=== PATIENT | female | born 1995 | race Caucasian/White ===

== ENCOUNTER 2019-12-17 13:06 | Emergency (ER) | payer BC, SELFPAY ==
--- NOTE | 2019-12-17 14:17 | ER ---
Nurse's Notes [facility] Name: Angelina Woodard Age: 24 yrs Sex: Female : 1995 Arrival Date: 12/17/2019 Time: 13:11 Bed 4 Private MD: Diagnosis: Pain in right knee Presentation: 12/16 13:23 Chief complaint: Patient states: right knee injury last night after twisting it. sv Coronavirus screen: Client denies travel out of the [place] in the last 14 days. At this time, the client does not indicate any symptoms associated with coronavirus-19. Ebola Screen: No symptoms or risks identified at this time. Risk Assessment: Do you want to hurt yourself or someone else? Patient reports no desire to harm self or others. Onset of symptoms was December 16, 2019. 13:23 Method Of Arrival: Ambulatory sv 13:23 Acuity: EDIN 4 sv 13:23 Initial Sepsis Screen: Does the patient meet any 2 criteria? No. Patient's initial sv sepsis screen is negative. Does the patient have a suspected source of infection? No. Patient's initial sepsis screen is negative. Triage Assessment: 13:25 General: Appears in no apparent distress. uncomfortable, Behavior is calm, cooperative, sv appropriate for age. Pain: Complains of pain in right knee. Neuro: Level of Consciousness is awake, alert, obeys commands, Oriented to person, place, time, situation, Gait is steady. Respiratory: Respiratory effort is even, unlabored. 14:09 General: Appears in no apparent distress. uncomfortable, Behavior is calm, cooperative, ph appropriate for age, Reports Denies fever, fatigue, chills. Pain: Complains of pain in right knee Pain does not radiate. Pain Quality of pain is described as Pain began 1 day ago. Aggravated by weight bearing. Neuro: No deficits noted. Level of Consciousness is awake, alert, obeys commands, Oriented to person, place, time, situation, Appropriate for age. Cardiovascular: No deficits noted. Respiratory: No deficits noted. Musculoskeletal: Reports pain in right knee. Historical: - Allergies: 13:23 No Known Allergies; sv - Immunization history:: Adult Immunizations up to date. - Social history:: Smoking status: . Screenin:43 Abuse screen: Denies threats or abuse. Denies injuries from another. Nutritional ph screening: No deficits noted. Tuberculosis screening: No symptoms or risk factors identified. Fall Risk None identified. Assessment: 14:43 Reassessment: Patient appears in no apparent distress at this time. Patient and/or ph family updated on plan of care and expected duration. Pain level reassessed. Patient is alert, oriented x 3, equal unlabored respirations, skin warm/dry/pink. Vital Signs: 13:23 BP 107 / 88; Pulse 88; Resp 16; Temp 97; Pulse Ox 99% ; Weight 108.86 kg; Height 5 ft. sv 3 in. (160.02 cm); 14:13 BP 125 / 86; Pulse 94; Resp 19; Pulse Ox 100% ; ph 13:23 Body Mass Index 42.51 (108.86 kg, 160.02 cm) sv ED Course: 13:11 Patient arrived in ED. mr 13:23 Zeeshan Sexton PA is PHCP. cp 13:23 Eduard Jack MD is Attending Physician. cp 13:23 Triage completed. sv 13:23 Arm band placed on. sv 14:07 XRAY Knee RIGHT 3 view In Process Unspecified. EDMS 14:08 Ayla Hodgson RN is Primary Nurse. ph 14:16 Jim Navarro MD is Referral Physician. cp 14:43 No provider procedures requiring assistance completed. Patient did not have IV access ph during this emergency room visit. 14:44 Patient has correct armband on for positive identification. ph 14:45 Donte wrap to right knee. ph Administered Medications: 14:12 Drug: Ibuprofen 800 mg Route: PO; ph 14:42 Follow up: Response: No adverse reaction ph Outcome: 14:17 Discharge ordered by MD. cp 14:43 Discharged to home ambulatory, with crutches. ph 14:43 Condition: good 14:43 Discharge instructions given to patient, Instructed on discharge instructions, follow up and referral plans. medication usage, Demonstrated understanding of instructions, follow-up care, medications. 14:45 Patient left the ED. ph Signatures: Dispatcher [employer] EDMS Sabrina Genao RN RN Libby Stewart mr Ayla Hodgson RN RN Zeeshan Sexton PA PA cp Corrections: (The following items were deleted from the chart) 13:25 13:23 Resp 16bpm; Pulse Ox 99%; Temp 97F; 108.86 kg; Height 5 ft. 3 in.; BMI: 42.5; sv sv 13:26 13:23 Pulse 88bpm; Resp 16bpm; Pulse Ox 99%; Temp 97F; 108.86 kg; Height 5 ft. 3 in.; sv BMI: 42.5; sv
--- NOTE | 2019-12-17 14:17 | EDPHYS ---
Physician Documentation [facility] Name: Angelina Woodard Age: 24 yrs Sex: Female : 1995 Arrival Date: 12/17/2019 Time: 13:11 Bed 4 Private MD: ED Physician Eduard Jack HPI: 12/16 13:50 This 24 yrs old Female presents to ER via Ambulatory with complaints of Knee cp Pain. 13:50 The patient presents with pain, that is acute. The complaints affect the medial aspect cp of right knee and right knee. Context: resulted from twisting of the extremity, dancing yesterday evening, the patient can fully bear weight, the patient is able to ambulate, with mild difficulty, Problem is a result from a previous injury: Yes. patella dislocation?. Associated signs and symptoms: Pertinent negatives calf tenderness, numbness, tingling, warmth, weakness. 13:50 Treatment prior to arrival includes: no previous treatment. cp Historical: - Allergies: 13:23 No Known Allergies; sv - Immunization history:: Adult Immunizations up to date. - Social history:: Smoking status: . ROS: 13:55 MS/extremity: Positive for pain, tenderness, of the right knee, Negative for decreased cp range of motion, deformity, paresthesias. 13:55 Constitutional: Negative for body aches, chills, fever. cp 13:55 Back: Negative for pain at rest, pain with movement, radiated pain. 13:55 Skin: Negative for rash. 13:55 All other systems are negative. Exam: 14:00 Constitutional: The patient appears in no acute distress, alert, awake, well developed, cp well nourished, obese. 14:00 Head/Face: Normocephalic, atraumatic. cp 14:00 Chest/axilla: Inspection: normal. cp 14:00 Cardiovascular: Rate: normal. 14:00 Respiratory: the patient does not display signs of respiratory distress, Respirations: normal. 14:00 Musculoskeletal/extremity: Extremities: grossly normal except: noted in the anterior aspect and medial aspect right knee: pain, tenderness, ROM: limited passive range of motion due to pain, in the right knee, Perfusion: the extremity is normally perfused throughout, Sensation intact. 14:00 Skin: cellulitis, is not appreciated, no rash present. Vital Signs: 13:23 BP 107 / 88; Pulse 88; Resp 16; Temp 97; Pulse Ox 99% ; Weight 108.86 kg; Height 5 ft. sv 3 in. (160.02 cm); 14:13 BP 125 / 86; Pulse 94; Resp 19; Pulse Ox 100% ; ph 13:23 Body Mass Index 42.51 (108.86 kg, 160.02 cm) sv MDM: 13:59 Patient medically screened. cp 14:15 Differential diagnosis: dislocation, closed fracture, tendonitis. Data reviewed: vital cp signs, nurses notes, radiologic studies, plain films. Test interpretation: by ED physician or midlevel provider: xrays of right knee negative for fracture and/or dislocation. Counseling: I had a detailed discussion with the patient and/or guardian regarding: the historical points, exam findings, and any diagnostic results supporting the discharge/admit diagnosis, radiology results, to return to the emergency department if symptoms worsen or persist or if there are any questions or concerns that arise at home. Response to treatment: the patient's symptoms have mildly improved after treatment, and as a result, I will discharge patient. 12/16 13:47 Order name: XRAY Knee RIGHT 3 view cp 12/16 14:13 Order name: Donte wrap-joint; Complete Time: 14:42 cp 12/16 14:13 Order name: Crutches; Complete Time: 14:42 cp Administered Medications: 14:12 Drug: Ibuprofen 800 mg Route: PO; ph 14:42 Follow up: Response: No adverse reaction ph Disposition: 14:30 Chart complete. cp 17:30 Co-signature as Attending Physician, Eduard Jack MD. rn Disposition: 12/17/19 14:17 Discharged to Home. Impression: Pain in right knee. - Condition is Stable. - Discharge Instructions: How to Use a Knee Brace, Knee Pain. - Prescriptions for Naprosyn 500 mg Oral Tablet - take 1 tablet by ORAL route 2 times per day take with food; 20 tablet. - Medication Reconciliation Form, Thank You Letter, Antibiotic Education, Prescription Opioid Use form. - Follow up: Jim Navarro MD; When: 1 week; Reason: pain continues. - Problem is new. - Symptoms have improved. Signatures: Dispatcher [employer] EDSabrina Andre RN RN sv Nieto, Roman, MD MD rn Hall, Patricia, RN RN ph Carlie, Zeeshan, PA PA cp Corrections: (The following items were deleted from the chart) 14:45 14:17 12/17/2019 14:17 Discharged to Home. Impression: Pain in right knee. Condition is ph Stable. Forms are Medication Reconciliation Form, Thank You Letter, Antibiotic Education, Prescription Opioid Use. Follow up: Jim Navarro; When: 1 week; Reason: pain continues. Problem is new. Symptoms have improved. cp
[2019-12-17] MEDS ORDERED: IBUPROFEN 400 MG TAB ONE (14:18)
[2019-12-17] MEDS ORDERED: FENTANYL CITR 100 MCG/2 ML ONE (14:20)
[2019-12-17 15:10] VITALS: TEMP 97
[2019-12-17 15:11] VITALS: BP 125/86; O2SAT 100
--- NOTE | 2019-12-17 15:50 | RAD REPORT ---
EXAM DESCRIPTION: RAD - Knee Right 3 View - 12/17/2019 2:07 pm CLINICAL HISTORY: PAIN COMPARISON: No comparisons FINDINGS: No acute fracture or dislocation is seen. No significant joint fluid.
== END 2019-12-17 14:45 | disposition home or self-care (01) ==
LOC: ER 13:06
DX: M25.561 Pain in right knee (principal)
CPT/HCPCS: 99283; J3010

== ENCOUNTER 2022-08-17 11:32 | Emergency (ER) | payer BC ==
--- OUTSIDE RECORDS SUMMARY | 2022-08-17 11:36 | XMS REPORT | Continuity of Care Document ---
:1995 Author Organization [facility] t Address [address] [facility] [address] [place] [address] Care Team Providers Name Role Phone Ken Burger DO Attending Clinician MILLIE TAYLOR Attending Clinician Unavailable Millie Orellana Attending Clinician [phone] Doctor Unassigned, [place] Attending Clinician Unavailable RICHARD ERICKSON Attending Clinician Unavailable Payers Payer Name Policy Type Policy Number Effective Date Expiration Date [facility] [id number] 2015 PPO 00:00:00 Problems Condition Condition Condition Status Onset Resolution Last Treating Co mments Source Name Details Category Date Date Treatment Clinician Date IUD IUD Disease Active 2019-0 Univers (intrauter (intrauter 4-07 it y of ine ine 00:00: [place] device) in device) in [address] Branch Encounter Encounter Disease Active 2020-0 Uni vers for IUD for IUD 4-07 [place] Other Other Disease Active 2020-0 Univers general general 3-19 [place] of counseling [place] and advice and advice 00 Me dical for for Branch contracept contracept red red management management Obesity Obesity Disease Active 2020-0 Univers (BMI (BMI 3-19 ity of 30-39.9) 30-39.9) 00:00: [place] [address] Medical Branch Back pain Back pain Disease Active 2019-0 Uni vers 6-06 ity of 00:00: [place] [address] Medical Branch History of History of Disease Active 2019-0 U nivers depression depression 5-16 it y of 00:00: [place] [address] Medical Branch Severe Severe Disease Active 2019-0 Univers anemia anemia 5-15 ity of 00:00: [place] 00 Medical Branch Allergies, Adverse Reactions, Alerts Allergy Allergy Status Severity Reaction(s) Onset Inactive Treating Comm ents Source Name Type Date Date Clinician NO KNOWN Drug Active Univers ALLERGIE Class ity of S [facility] Social History Social Habit Start Date Stop Date Quantity Comments Source Tobacco use and 2019-05-31 2019-05-31 Never used Universit y of exposure 00:00:00 00:00:00 [facility] Alcohol intake 2019-05-31 2019-05-31 Current University 00:00:00 00:00:00 non-drinker of [facility] alcohol Branch (finding) Sex Assigned At [address] [facility] y of 00:00:00 00:00:00 [facility] Smoking Status Start Date Stop Date Source Never smoker [facility] Medications Ordered Filled Start Stop Current Ordering Indication Dosage Frequency Signature Comments Components Source Medication Medication Date Date Medication? Clinician (SIG) Name Name levonorgest 2019- 2020- No 1{devic Un april rel 4- 04-07 e} ity of (LILSHREVE) 22:00: 21:00 [place] IUD 1 00 :00 [employer] Branch levonorgest 2019-0 2020- No 1{devic 1 Device, Univers rel 4-07 04-07 e} Intrauteri ity of (LILSHREVE) 22:00: 21:00 [place] 1 [place] :00 1 dose, [employer] [facility] 05/31/19 Branch at 1700, Routine levonorgest 2020-0 2020- No 1{devic Un april rel 4- 04-07 e} ity of (LILSHREVE) 22:00: 21:00 [place] IUD 1 00 :00 [employer] Branch levonorgest 2019-0 2020- No 1{devic 1 Device, Univers rel 4-07 04-07 e} Intrauteri ity of (LILETTA) 22:00: 21:00 [place] 1 00 :00 1 dose, [employer] Thu05/31/19 Branch at 1700, Routine IBUPROFEN Yes [id number] TAKE 1 U nivers 600 mg 6-07 TABLET BY ity of tablet 00:00: MOUTH [place] [address] EVERY 6 Medical HOURS Branch NEEDED FOR PAIN. TAKE WITH FOOD OR MILK IBUPROFEN Yes [id number] TAKE 1 U nivers 600 mg 6-07 TABLET BY ity of tablet 00:00: MOUTH [place] 00 EVERY 6 Medical HOURS Branch NEEDED FOR PAIN. TAKE WITH FOOD OR MILK IBUPROFEN Yes [id number] TAKE 1 U nivers 600 mg 6-07 TABLET BY ity of tablet 00:00: MOUTH [place] 00 EVERY 6 Medical HOURS Branch NEEDED FOR PAIN. TAKE WITH FOOD OR MILK IBUPROFEN Yes [id number] TAKE 1 U nivers 600 mg 6-07 TABLET BY ity of tablet 00:00: MOUTH [place] 00 EVERY 6 Medical HOURS Branch NEEDED FOR PAIN. TAKE WITH FOOD OR MILK IBUPROFEN Yes [id number] TAKE 1 U nivers 600 mg 6-07 TABLET BY ity of tablet 00:00: MOUTH [place] 00 EVERY 6 Medical HOURS Branch NEEDED FOR PAIN. TAKE WITH FOOD OR MILK IBUPROFEN Yes [id number] TAKE 1 U nivers 600 mg 6-07 TABLET BY ity of tablet 00:00: MOUTH [place] 00 EVERY 6 Medical HOURS Branch NEEDED FOR PAIN. TAKE WITH FOOD OR MILK IBUPROFEN Yes [id number] TAKE 1 U nivers 600 mg 6-07 TABLET BY ity of tablet 00:00: MOUTH [place] 00 EVERY 6 Medical HOURS Branch NEEDED FOR PAIN. TAKE WITH FOOD OR MILK IBUPROFEN Yes [id number] TAKE 1 U nivers 600 mg 6-07 TABLET BY ity of tablet 00:00: MOUTH [place] 00 EVERY 6 Medical HOURS Branch NEEDED FOR PAIN. TAKE WITH FOOD OR MILK IBUPROFEN Yes [id number] TAKE 1 U nivers 600 mg 6-07 TABLET BY ity of tablet 00:00: MOUTH [place] 00 EVERY 6 Medical HOURS Branch NEEDED FOR PAIN. TAKE WITH FOOD OR MILK IBUPROFEN Yes [id number] TAKE 1 U nivers 600 mg 6-07 TABLET BY ity of tablet 00:00: MOUTH [place] 00 EVERY 6 Medical HOURS Branch NEEDED FOR PAIN. TAKE WITH FOOD OR MILK ferrous Yes [id number] 325mg Take 1 Un april sulfate 325 -06 tablet by ity of mg (65 mg 00:00: mouth [place] iron) 00 daily. Medical tablet Branch Iron Fum & Yes [id number] 1{capsu Take 1 Univers P-FA-Vit B 6- le} capsule by ity of & C No.9 00:00: mouth [place] (INTEGRA 00 daily. Medical PLUS) 125 Branch mg iron- 1 mg Cap ferrous Yes [id number] 325mg Take 1 Un april sulfate 325 6-06 tablet by ity of mg (65 mg 00:00: mouth [place] iron) 00 daily. Medical tablet Branch Iron Fum & Yes [id number] 1{capsu Take 1 Univers P-FA-Vit B 6-06 le} capsule by ity of & C No.9 00:00: mouth [place] (INTEGRA 00 daily. Medical PLUS) 125 Branch mg iron- 1 mg Cap ferrous Yes [id number] 325mg Take 1 Un april sulfate 325 6-06 tablet by ity of mg (65 mg 00:00: mouth [place] iron) 00 daily. Medical tablet Branch Iron Fum & Yes [id number] 1{capsu Take 1 Univers P-FA-Vit B 6-06 le} capsule by ity of & C No.9 00:00: mouth [place] (INTEGRA 00 daily. Medical PLUS) 125 Branch mg iron- 1 mg Cap ferrous Yes [id number] 325mg Take 1 Un april sulfate 325 6-06 tablet by ity of mg (65 mg 00:00: mouth [place] iron) 00 daily. Medical tablet Branch Iron Fum & Yes [id number] 1{capsu Take 1 Univers P-FA-Vit B 6-06 le} capsule by ity of & C No.9 00:00: mouth [place] (INTEGRA 00 daily. Medical PLUS) 125 Branch mg iron- 1 mg Cap ferrous Yes [id number] 325mg Take 1 Un april sulfate 325 6-06 tablet by ity of mg (65 mg 00:00: mouth [place] iron) 00 daily. Medical tablet Branch Iron Fum & Yes [id number] 1{capsu Take 1 Univers P-FA-Vit B 6-06 le} capsule by ity of & C No.9 00:00: mouth [place] (INTEGRA 00 daily. Medical PLUS) 125 Branch mg iron- 1 mg Cap ferrous Yes [id number] 325mg Take 1 Un april sulfate 325 6-06 tablet by ity of mg (65 mg 00:00: mouth [place] iron) 00 daily. Medical tablet Branch Iron Fum & Yes [id number] 1{capsu Take 1 Univers P-FA-Vit B 6-06 le} capsule by ity of & C No.9 00:00: mouth [place] (INTEGRA 00 daily. Medical PLUS) 125 Branch mg iron- 1 mg Cap ferrous Yes [id number] 325mg Take 1 Un april sulfate 325 6-06 tablet by ity of mg (65 mg 00:00: mouth [place] iron) 00 daily. Medical tablet Branch Iron Fum & Yes [id number] 1{capsu Take 1 Univers P-FA-Vit B 6-06 le} capsule by ity of & C No.9 00:00: mouth [place] (INTEGRA 00 daily. Medical PLUS) 125 Branch mg iron- 1 mg Cap ferrous Yes [id number] 325mg Take 1 Un april sulfate 325 6-06 tablet by ity of mg (65 mg 00:00: mouth [place] iron) 00 daily. Medical tablet Branch Iron Fum & Yes [id number] 1{capsu Take 1 Univers P-FA-Vit B 6-06 le} capsule by ity of & C No.9 00:00: mouth [place] (INTEGRA 00 daily. Medical PLUS) 125 Branch mg iron- 1 mg Cap ferrous Yes [id number] 325mg Take 1 Un april sulfate 325 6-06 tablet by ity of mg (65 mg 00:00: mouth [place] iron) 00 daily. Medical tablet Branch Iron Fum & Yes [id number] 1{capsu Take 1 Univers P-FA-Vit B 6-06 le} capsule by ity of & C No.9 00:00: mouth [place] (INTEGRA 00 daily. Medical PLUS) 125 Branch mg iron- 1 mg Cap ferrous Yes [id number] 325mg Take 1 Un april sulfate 325 6-06 tablet by ity of mg (65 mg 00:00: mouth [place] iron) 00 daily. Medical tablet Branch Iron Fum & Yes [id number] 1{capsu Take 1 Univers P-FA-Vit B 6-06 le} capsule by ity of & C No.9 00:00: mouth [place] (INTEGRA 00 daily. Medical PLUS) 125 Branch mg iron- 1 mg Cap docusate Yes [id number] 240mg Take 1 U nivers calcium 240 5-17 capsule by it y of mg capsule 00:00: mouth [place] 00 daily as Medical needed for Branch Constipati on. docusate Yes [id number] 240mg Take 1 U nivers calcium 240 5-17 capsule by it y of mg capsule 00:00: mouth [place] 00 daily as Medical needed for Branch Constipati on. docusate Yes [id number] 240mg Take 1 U nivers calcium 240 5-17 capsule by it y of mg capsule 00:00: mouth [place] 00 daily as Medical needed for Branch Constipati on. docusate Yes [id number] 240mg Take 1 U nivers calcium 240 5-17 capsule by it y of mg capsule 00:00: mouth [place] 00 daily as Medical needed for Branch Constipati on. docusate Yes [id number] 240mg Take 1 U nivers calcium 240 5-17 capsule by it y of mg capsule 00:00: mouth [place] 00 daily as Medical needed for Branch Constipati on. docusate Yes [id number] 240mg Take 1 U nivers calcium 240 5-17 capsule by it y of mg capsule 00:00: mouth [place] 00 daily as Medical needed for Branch Constipati on. docusate Yes [id number] 240mg Take 1 U nivers calcium 240 5-17 capsule by it y of mg capsule 00:00: mouth [place] 00 daily as Medical needed for Branch Constipati on. docusate Yes [id number] 240mg Take 1 U nivers calcium 240 5-17 capsule by it y of mg capsule 00:00: mouth [place] 00 daily as Medical needed for Branch Constipati on. docusate Yes [id number] 240mg Take 1 U nivers calcium 240 5-17 capsule by it y of mg capsule 00:00: mouth [place] 00 daily as Medical needed for Branch Constipati on. docusate Yes [id number] 240mg Take 1 U nivers calcium 240 5-17 capsule by it y of mg capsule 00:00: mouth [place] 00 daily as Medical needed for Branch Constipati on. Immunizations Ordered Filled Immunization Date Status Comments [facility] Immunization Name Name HPV9 2018-07-09 [facility] HPV9 2018-07-09 Completed University of 00:00:00 [facility] HPV9 2018-07-09 Completed University of 00:00:00 [facility] HPV9 2018-07-09 Completed University of 00:00:00 [facility] HPV9 2018-07-09 Completed University of 00:00:00 [facility] HPV9 2018-07-09 Completed University of 00:00:00 [facility] HPV9 2018-07-09 Completed University of 00:00:00 [facility] HPV9 2018-07-09 Completed University of 00:00:00 [facility] HPV9 2018-07-09 Completed University of 00:00:00 [facility] HPV9 2018-07-09 Completed University of 00:00:00 [facility] Influenza Virus 2018-04-29 Completed Universit y of Vaccine Quad .5 mL 00:00:00 [place] [address]+ [place] Tdap 2018-04-29 Completed University of 00:00:00 [facility] Influenza Virus 2018-04-29 Completed Universit y of Vaccine Quad .5 mL 00:00:00 [facility] 6+ [place] Tdap 2018-04-29 Completed University of 00:00:00 [facility] Influenza Virus 2018-04-29 Completed Universit y of Vaccine Quad .5 mL 00:00:00 [facility] 6+ [place] Tdap 2018-04-29 Completed University of 00:00:00 [facility] Influenza Virus 2018-04-29 Completed Universit y of Vaccine Quad .5 mL 00:00:00 [facility] 6+ [place] TDAP 2018-04-29 Completed University of 00:00:00 [facility] Influenza Virus 2018-04-29 Completed Universit y of Vaccine Quad .5 mL 00:00:00 [facility] 6+ [place] Tdap 2018-04-29 Completed University of 00:00:00 [facility] Influenza Virus 2018-04-29 Completed Universit y of Vaccine Quad .5 mL 00:00:00 [facility] 6+ [place] Tdap 2018-04-29 Completed University of 00:00:00 [facility] Influenza Virus 2018-04-29 Completed Universit y of Vaccine Quad .5 mL 00:00:00 [facility] 6+ [place] Tdap 2018-04-29 Completed University of 00:00:00 [facility] Influenza Virus 2018-04-29 Completed Universit y of Vaccine Quad .5 mL 00:00:00 [facility] IM 6+ [place] Branch Tdap 2018-04-29 Completed University of 00:00:00 [facility] Influenza Virus 2018-04-29 Completed Universit y of Vaccine Quad .5 mL 00:00:00 [facility] IM 6+ [place] Branch Tdap 2018-04-29 Completed University of 00:00:00 [facility] Influenza Virus 2018-04-29 Completed Universit y of Vaccine Quad .5 mL 00:00:00 [facility] IM 6+ [place] Branch Tdap 2018-04-29 Completed University of 00:00:00 [facility] Tdap 2015-10-18 Completed University of 00:00:00 [facility] Tdap 2015-10-18 Completed University of 00:00:00 [facility] Tdap 2015-10-18 Completed University of 00:00:00 [facility] TDAP 2015-10-18 Completed University of 00:00:00 [facility] Tdap 2015-10-18 Completed University of 00:00:00 [facility] Tdap 2015-10-18 Completed University of 00:00:00 [facility] Tdap 2015-10-18 Completed University of 00:00:00 [facility] Tdap 2015-10-18 Completed University of 00:00:00 [facility] Tdap 2015-10-18 Completed University of 00:00:00 [facility] Tdap 2015-10-18 Completed University of 00:00:00 [facility] Tdap 2012-09-29 Completed University of 00:00:00 [facility] Tdap 2012-09-29 Completed University of 00:00:00 [facility] Tdap 2012-09-29 Completed University of 00:00:00 [facility] TDAP 2012-09-29 Completed University of 00:00:00 [facility] Tdap 2012-09-29 Completed University of 00:00:00 [facility] Tdap 2012-09-29 Completed University of 00:00:00 [facility] Tdap 2012-09-29 Completed University of 00:00:00 [facility] Tdap 2012-09-29 Completed University of 00:00:00 [facility] Tdap 2012-09-29 Completed University of 00:00:00 [facility] Tdap 2012-09-29 Completed University of 00:00:00 [facility] Vital Signs Vital Name Observation Time Observation Value Comments Source Body height 2019-05-31 20:21:00 162.6 cm Universi ty of [facility] Body weight 2019-05-31 20:21:00 114.023 kg Universi ty of [facility] BMI 2019-05-31 20:21:00 43.15 kg/m2 Universi ty [facility] Systolic blood 2019-05-31 20:21:00 116 mm[Hg] Univer sity of pressure [facility] Diastolic blood 2019-05-31 20:21:00 79 mm[Hg] Unive rsity of pressure [facility] Heart rate 2019-05-31 20:21:00 92 /min Universi ty of [facility] Body temperature 2019-05-31 20:21:00 36.17 [place] Univ ersity of [facility] Respiratory rate 2019-05-31 20:21:00 16 /min [facility] Systolic blood 2019-05-12 18:59:00 114 mm[Hg] Univer sity of pressure [facility] Diastolic blood 2019-05-12 18:59:00 72 mm[Hg] Unive rsity of [facility] Heart rate 2019-05-12 18:59:00 73 /min Universi ty of [facility] Body temperature 2019-05-12 18:59:00 36.5 [place] Univ ersity of [facility] Respiratory rate 2019-05-12 18:59:00 16 /min [facility] Body height 2019-05-12 18:59:00 160 cm Universi ty [facility] Body weight 2019-05-12 18:59:00 113.172 kg Universi ty [facility] BMI 2019-05-12 18:59:00 44.20 kg/m2 Universi ty [facility] Procedures Procedure Date / Time Performed Performing Clinician Sourc e POCT TEST 2019-05-31 20:23:00 Millie Taylor [facility] DISCLOSURE AND 2019-05-31 05:01:00 Doctor Unassigned, No Univer sity [facility] CONSENT, MEDICAL AND Name Medical [facility] SURGICAL PROCEDURES POCT TEST 2019-05-12 20:20:00 Millie Taylor Uni [facility] [id number] CONSENT 2019-05-12 05:01:00 Doctor Unassigned, No Unive rsity of [place] Name [facility] Encounters Start End Encounter Admission Attending Care Care Encounter Source Date/Time Date/Time Type Type Clinicians Facility Department ID 2020-05-15 2020-05-15 Patient Tao [facility] [id number] Univers 00:00:00 00:00:00 Outreach Ken PRIMARY [id number] i ty of [facility] [id number] [place] [id number] Wy dical [address] [place] [address] 2019-07-13 2019-07-13 Outpatient R AKINSIPE, [facility] [id number] Univers 13:15:00 13:15:00 MILLIE mckenzie [facility] 2019-07-13 2019-07-13 Telemedici [facility] [id number] Univers 12:49:17 13:04:17 ne Visit Millie Rodriguez FURNITURE BUILDER [id number] ity [facility] [id number] Tim[place] as MATERNAL [phone] Med ical & CHILD [address] [place] [address] 2019-06-01 2019-06-01 Outpatient R AKINSIPE, [facility] [id number] Univers 13:30:00 13:30:00 MILLIE mckenzie [facility] 2019-05-31 2019-05-31 Office [facility] [id number] Univers 15:06:58 16:01:07 Visit Millie Rodriguez FURNITURE BUILDER [id number] ity [facility] [id number] Timo as MATERNAL [id number] [facility] ical & CHILD [address] [place] [address] 2019-05-31 2019-05-31 Outpatient R AKINSIPE, [facility] [id number] Univers 15:00:00 15:00:00 MILLIE mckenzie [facility] 2019-05-31 2019-05-31 Orders Doctor AGUILAR [id number] Univers 00:00:00 00:00:00 Only Unassigned, MARINA [id number] ity of [place] [facility] [id number] Timo as [id number] [address] 2019-05-27 2019-05-27 Outpatient R JOSE G [facility] [id number] Univers 08:30:00 08:30:00 MILLIE juan r o magaly [facility] 2019-05-27 2019-05-27 Telephone [facility] [id number] Univers 00:00:00 00:00:00 Millie C FURNITURE BUILDER [id number] ity of [facility] [id number] Timo as MATERNAL [id number] [facility] & CHILD [address] [place] [address] 2019-05-26 2019-05-26 Telemedici [facility] [id number] Univers 13:33:45 15:49:33 ne Visit [facility] FURNITURE BUILDER [id number] ity of [facility] [id number] Timo as MATERNAL [id number] [facility] & [address] 2019-05-26 2019-05-26 [facility] [id number] Univers 15:00:00 15:00:00 MILLIE jordan magaly [facility] 2019-05-12 2019-05-12 [facility] [id number] Univers 13:39:49 14:37:53 Visit [facility] FURNITURE BUILDER [id number] ity of [facility] [id number] Timo as MATERNAL [id number] [facility] & [address] 2019-05-12 2019-05-12 Outpatient R JOSE G [facility] [id number] Univers 09:30:00 09:30:00 MILLIE pete o magaly [facility] 2019-05-12 2019-05-12 Orders Doctor AGUILAR [id number] Univers 00:00:00 00:00:00 Only Unassigned, MARINA [id number] ity of [place] [facility] [id number] Timo as [id number] [address] 2018-07-29 2018-07-29 Outpatient R GEORGINA [facility] [id number] Univers 09:30:00 10:20:16 RICHARD pete [facility] Results Test Description Test Time Test Comments Results Result Comments Source POCT TEST 2019-05-31 20:23:00 Test Item Value Reference Range Interpretation Comme nts POCT PREG (test code = 1605) Negative On board controls acceptable with C Line (test code = 3574) Yes POCT PREG LOT # (test code = 3575) POCT PREG TEST DATE (test code = 3576) [id number] 20:23:00 Test Item Value Reference Range Interpretation Comments POCT PREG (test code = 1605) Negative On board controls acceptable with C Yes Line (test code = 3574) POCT PREG LOT # (test code = 3575) POCT PREG TEST DATE (test code = 3576) [facility] [id number] 20:20:00 Test Item Value Reference Range Interpretation Comments POCT PREG (test code = 1605) Negative On board controls acceptable with C Yes Line (test code = 3574) POCT PREG LOT # (test code = 3575) POCT PREG TEST DATE (test code = 3576) [facility] [id number] 20:20:00 Test Item Value Reference Range Interpretation Comments POCT PREG (test code = 1605) Negative On board controls acceptable with C Yes Line (test code = 3574) POCT PREG LOT # (test code = 3575) POCT PREG TEST DATE (test code = 3576) [facility]
[2022-08-17 12:08] LABS: Specific Gravity 1.021 (1.005-1.030)
[2022-08-17 12:12] LABS: Specific Gravity 1.021 (1.005-1.030); Urine Bacteria >50 /HPF (<20); Urine Bilirubin NEGATIVE (Negative); Urine Blood 1+ (Negative); Urine Clarity Extremely Turbid (Clear); Urine Color Light-Orange (Yellow); Urine Glucose NEGATIVE (Negative); Urine Mucus Slight /HPF (None Seen); Urine Protein TRACE (Negative); Urine Urobilinogen Normal (Normal); Urine WBC Clump Rare /HPF (None Seen); Urine pH 5.5 (5.0-7.0)
[2022-08-17 12:23] LABS: SARS-CoV-2 Antigen Rapid Res Negative (Negative)
--- NOTE | 2022-08-17 12:39 | EDPHYS ---
Physician Documentation [facility] Name: Angelina Woodard Age: 27 yrs Sex: Female : 1995 Arrival Date: 08/17/2022 Time: 11:32 Bed 18 Private MD: LORRAINE Physician Zeeshan Odell HPI: 08/17 12:35 This 27 yrs old Female presents to ER via Ambulatory with complaints of Headache, snw Cough, Chest Congestion, Drainage From Eye. Historical: - Allergies: 11:53 Amoxicillin; bp - Home Meds: 11:53 cetirizine 10 mg oral capsule daily [Active]; escitalopram oxalate oral [Active]; bp - Immunization history:: Adult Immunizations up to date. - Social history:: Smoking status: Patient denies any tobacco usage or history of. ROS: 11:51 Constitutional: Negative for fever, chills, and weight loss, Eyes: Negative for injury, snw pain, redness, and discharge, Neck: Negative for injury, pain, and swelling, Abdomen/GI: Negative for abdominal pain, nausea, vomiting, diarrhea, and constipation, Back: Negative for injury and pain, : Negative for injury, bleeding, discharge, and swelling, MS/Extremity: Negative for injury and deformity, Skin: Negative for injury, rash, and discoloration, Neuro: Negative for headache, weakness, numbness, tingling, and seizure, Psych: Negative for depression, anxiety, suicide ideation, homicidal ideation, and hallucinations. 11:51 ENT: Positive for sinus congestion, sore throat. 11:51 Cardiovascular: Positive for palpitations. 11:51 Respiratory: Positive for cough, with green sputum. Exam: 11:49 Head/Face: Normocephalic, atraumatic. Eyes: Pupils equal round and reactive to light, snw extra-ocular motions intact. Lids and lashes normal. Conjunctiva and sclera are non-icteric and not injected. Cornea within normal limits. Periorbital areas with no swelling, redness, or edema. right eyelid vitiligo Neck: Trachea midline, no thyromegaly or masses palpated, and no cervical lymphadenopathy. Supple, full range of motion without nuchal rigidity, or vertebral point tenderness. No Meningismus. Chest/axilla: Normal chest wall appearance and motion. Nontender with no deformity. No lesions are appreciated. Abdomen/GI: Soft, non-tender, with normal bowel sounds. No distension or tympany. No guarding or rebound. No evidence of tenderness throughout. Back: No spinal tenderness. No costovertebral tenderness. Full range of motion. Skin: Warm, dry with normal turgor. Normal color with no rashes, no lesions, and no evidence of cellulitis. MS/ Extremity: Pulses equal, no cyanosis. Neurovascular intact. Full, normal range of motion. Neuro: Awake and alert, GCS 15, oriented to person, place, time, and situation. Cranial nerves II-XII grossly intact. Motor strength 5/5 in all extremities. Sensory grossly intact. Cerebellar exam normal. Normal gait. Psych: Awake, alert, with orientation to person, place and time. Behavior, mood, and affect are within normal limits. 11:49 Constitutional: The patient appears alert, awake, anxious, obese, uncomfortable. 11:49 ENT: External ear(s): are unremarkable, Nose: is normal, Mouth: is normal, Posterior pharynx: erythema, that is moderate, Voice: is hoarse. 11:49 Cardiovascular: Rate: tachycardic, Rhythm: regular, Pulses: no pulse deficits are appreciated. 11:49 Respiratory: the patient does not display signs of respiratory distress, Respirations: shallow respirations, Breath sounds: bronchial sounds, that are mild. Vital Signs: 11:44 BP 119 / 96; Pulse 124; Resp 17; Temp 98.6; Pulse Ox 98% on R/A; bc6 13:00 BP 121 / 85; Pulse 119; Resp 16; Pulse Ox 97% ; bp MDM: 11:40 Patient medically screened. silvana 12:36 Differential diagnosis: bronchitis, flu, URI, pneumonia. Data reviewed: vital signs, snw nurses notes. I considered the following discharge prescriptions or medication management in the emergency department Medications were administered in the Emergency Department. See MAR. Counseling: I had a detailed discussion with the patient and/or guardian regarding: the historical points, exam findings, and any diagnostic results supporting the discharge/admit diagnosis, lab results, radiology results, the need for outpatient follow up, to return to the emergency department if symptoms worsen or persist or if there are any questions or concerns that arise at home. Special discussion: Based on the history and exam findings, there is no indication for further emergent testing or inpatient evaluation. I discussed with the patient/guardian the need to see the primary care provider for further evaluation of the symptoms. 08/17 11:49 Order name: Flu; Complete Time: 12:28 snw 08/17 11:49 Order name: Strep snw 08/17 11:49 Order name: SARS RAPID; Complete Time: 12:24 snw 08/17 11:49 Order name: PREGU; Complete Time: 12:14 snw 08/17 11:49 Order name: Urine W/Microscopic (UAM); Complete Time: 12:14 snw 08/17 12:26 Order name: Throat Culture EDMS 08/17 11:49 Order name: Chest Pa And Lat (2 Views) XRAY; Complete Time: 12:43 snw Administered Medications: 12:50 Drug: AZITHromycin PO 500 mg Route: PO; bp 12:59 Follow up: Response: No adverse reaction bp 12:50 Drug: predniSONE PO 20 mg Route: PO; bp 12:59 Follow up: Response: No adverse reaction bp 12:50 Drug: Famotidine PO 20 mg Route: PO; bp 12:59 Follow up: Response: No adverse reaction bp 12:50 Drug: ZyrTEC - Cetirizine PO 10 mg Route: PO; bp 12:59 Follow up: Response: No adverse reaction bp Disposition Summary: 08/17/22 12:38 Discharge Ordered Location: Home snw Condition: Stable snw Diagnosis - Unspecified asthma with (acute) exacerbation snw Followup: snw - With: Emergency Department - When: As needed - Reason: Worsening of condition Followup: snw - With: Private Physician - When: 2 - 3 days - Reason: Recheck today's complaints, Continuance of care, Re-evaluation by your physician Discharge Instructions: - Discharge Summary Sheet snw - Asthma, Adult snw - Cough, Adult snw Forms: - Work release form snw - Medication Reconciliation Form snw - Thank You Letter snw - Antibiotic Education snw - Prescription Opioid Use snw Prescriptions: - Zyrtec 10 mg Oral Tablet - take 1 tablet by ORAL route once daily As needed; 20 tablet; Refills: 0, snw Product Selection Permitted - Prednisone 20 mg Oral Tablet - take 2 tablets by ORAL route once daily for 5 days; 10 tablet; Refills: 0, snw Product Selection Permitted - Pepcid 20 mg Oral Tablet - take 1 tablet by ORAL route once daily; 20 tablet; Refills: 0, Product snw Selection Permitted - Zithromax 500 mg Oral Tablet - take 1 tablet by ORAL route once daily for 5 days; 5 tablet; Refills: 0, snw Product Selection Permitted Signatures: Dispatcher [employer] EDZeeshan Carter MD MD cha Waters, Shelly, HEARTH FEEDER-C HEARTH FEEDER-Csnw Mickie Orozco RN RN aa5 Shay Degroot RN RN bp Corrections: (The following items were deleted from the chart) 11:56 11:43 Allergies: No Known Allergies; aa5 bp
--- NOTE | 2022-08-17 12:39 | ER ---
Nurse's Notes [facility] Name: Angelina Woodard Age: 27 yrs Sex: Female : 1995 Arrival Date: 08/17/2022 Time: 11:32 Bed 18 Private MD: Diagnosis: Unspecified asthma with (acute) exacerbation Presentation: 08/17 11:49 Chief complaint: Patient states: COUGH, CONGESTION x1 MONTH. Coronavirus screen: At this time, the client does not indicate any symptoms associated with coronavirus-19. Ebola Screen: No symptoms or risks identified at this time. Initial Sepsis Screen: Does the patient meet any 2 criteria? HR > 90 bpm. No. Patient's initial sepsis screen is negative. Does the patient have a suspected source of infection? Yes: Productive cough/pneumonia. Risk Assessment: Do you want to hurt yourself or someone else? Patient reports no desire to harm self or others. Onset of symptoms is unknown. 11:49 Method Of Arrival: Ambulatory bp 11:49 Acuity: EDIN 3 bp Triage Assessment: 11:49 Headache History: The patient has had previous headaches and this one is similar to previous episodes. General: Appears ill, Behavior is appropriate for age. Pain: Pain currently is 5 out of 10 on a pain scale. Pain began gradually, Also complains of no other associated symptoms. EENT: Reports nasal congestion nasal discharge. Neuro: Reports headache. Cardiovascular: Rhythm is sinus tachycardia. Respiratory: Reports cough that is. GI: No signs and/or symptoms were reported involving the gastrointestinal system. : No signs and/or symptoms were reported regarding the genitourinary system. Derm: No deficits noted. Musculoskeletal: No deficits noted. Historical: - Allergies: 11:53 Amoxicillin; bp - Home Meds: 11:53 cetirizine 10 mg oral capsule daily [Active]; escitalopram oxalate oral [Active]; bp - Immunization history:: Adult Immunizations up to date. - Social history:: Smoking status: Patient denies any tobacco usage or history of. Screenin:00 [facility] ED Fall Risk Assessment (Adult) History of falling in the last 3 months, bp including since admission No falls in past 3 months (0 pts). Abuse screen: Denies threats or abuse. Denies injuries from another. Nutritional screening: No deficits noted. Tuberculosis screening: No symptoms or risk factors identified. Assessment: 11:45 General: SEE TRIAGE NOTE. bp Vital Signs: 11:44 BP 119 / 96; Pulse 124; Resp 17; Temp 98.6; Pulse Ox 98% on R/A; bc6 13:00 BP 121 / 85; Pulse 119; Resp 16; Pulse Ox 97% ; bp ED Course: 11:33 Patient arrived in ED. am2 11:36 Melba Garcia [facility]-C [facility] snw 11:36 Zeeshan Odell MD is Attending Physician. snw 11:40 Shay Degroot, RN is Primary Nurse. bp 11:43 Arm band placed on Patient placed in an exam room, on a stretcher. aa5 11:50 Triage completed. bp 12:35 Chest Pa And Lat (2 Views) XRAY In Process Unspecified. EDMS 13:00 Patient has correct armband on for positive identification. Bed in low position. Call bp light in reach. Side rails up X2. 13:00 No provider procedures requiring assistance completed. Patient did not have IV access bp during this emergency room visit. Administered Medications: 12:50 Drug: AZITHromycin PO 500 mg Route: PO; bp 12:59 Follow up: Response: No adverse reaction bp 12:50 Drug: predniSONE PO 20 mg Route: PO; bp 12:59 Follow up: Response: No adverse reaction bp 12:50 Drug: Famotidine PO 20 mg Route: PO; bp 12:59 Follow up: Response: No adverse reaction bp 12:50 Drug: ZyrTEC - Cetirizine PO 10 mg Route: PO; bp 12:59 Follow up: Response: No adverse reaction bp Medication: 13:00 VIS not applicable for this client. bp Outcome: 12:38 Discharge ordered by . snw 13:00 Discharged to home ambulatory. bp 13:00 Condition: stable 13:00 Discharge instructions given to patient, Instructed on discharge instructions, follow up and referral plans. medication usage, Demonstrated understanding of instructions, follow-up care, medications, Prescriptions given X 4. 13:18 Patient left the ED. bp Signatures: Dispatcher [employer] EDMS Melba Garcia FNP-C FNP-Mickie Myles RN RN aa5 Janice Delvalle am2 Shay Degroot, KEVIN RN bp Enma Bell bc6 Corrections: (The following items were deleted from the chart) 11:56 11:43 Allergies: No Known Allergies; aa5 bp
--- NOTE | 2022-08-17 12:40 | RAD REPORT ---
EXAM DESCRIPTION: RAD - Chest Pa And Lat (2 Views) - 08/17/2022 12:34 pm CLINICAL HISTORY: COUGH Chest pain. COMPARISON: CHEST PA AND LAT 2 VIEW dated 10/25/2014 FINDINGS: The lungs are grossly clear. The heart is normal in size. No displaced fractures. IMPRESSION: No acute or concerning finding suspected.
[2022-08-17] MEDS ORDERED: CETIRIZINE HCL 5 MG TABLET ONE (12:54)
[2022-08-17] MEDS ORDERED: predniSONE 20 MG TAB ONE (12:55)
[2022-08-17] MEDS ORDERED: AZITHROMYCIN 250 MG TAB ONE (12:55)
[2022-08-17] MEDS ORDERED: FAMOTIDINE 20 MG TAB ONE (12:55)
[2022-08-17 13:23] VITALS: TEMP 98.6
[2022-08-17 13:24] VITALS: BP 121/85; O2SAT 97
== END 2022-08-17 13:18 | disposition home or self-care (01) ==
LOC: ER 11:32
DX: J45.901 Unspecified asthma with (acute) exacerbation (principal); R05.9 Cough, unspecified; R51.9 Headache, unspecified; R09.89 Other specified symptoms and signs involving the circulatory and respiratory systems; Z20.822 Contact with and (suspected) exposure to COVID-19; Z88.1 Allergy status to other antibiotic agents
CPT/HCPCS: 87070; 81001; 36415; 81025; 87081; 87804 ×2; 71046; 99283; 87811; J7512

== ENCOUNTER 2022-12-27 17:25 | Emergency (ER) | payer BC ==
--- OUTSIDE RECORDS SUMMARY | 2022-12-27 17:31 | XMS REPORT | Continuity of Care Document ---
:1995 Author Organization [facility] t Address [address] [place] [address] Care Team Providers Name Role Phone Santa Short Primary Care Physician MILLIE ARAIZA Attending Clinician Unavailable TONY LOWRY Attending Clinician Unavailable Santa Short Attending Clinician SANTA GOLDMAN Attending Clinician Unavailable CARRI INFANTE Attending Clinician Unavailable Ultrasound, Samantha Attending Clinician Unavailable Carri Infante MD Attending Clinician [phone] Lab, Lucho Attending Clinician Unavailable Millie Orellana Attending Clinician [phone] Lab, Sug-Rmchgabriel Attending Clinician Unavailable Ultrasound, James Attending Clinician Unavailable IVONE MENENDEZ Attending Clinician Unavailable Ivone Balderas Attending Clinician [phone] FoJudi Perales Attending Clinician Doctor Unassigned, [place] Attending Clinician Unavailable Provider, Lucho Temp Attending Clinician Unavailable Kne Burger DO Attending Clinician RICHARD ERICKSON Attending Clinician Unavailable Payers Payer Name Policy Type Policy Number Effective Date Expiration Date S [facility] [id number] 2015 PPO 00:00:00 Problems Condition Condition Condition Status Onset Resolution Last Treating Co mments Source Name Details Category Date Date Treatment Clinician Date Dichorioni Dichorioni Disease Active 2022-02 U nivers c c 0-18 ity [place] diamniotic diam[place]otic [place] twin twin 00 Medical Bran ch in first in first trimester trimester UTI UTI Disease Active Univers (urinary (urinary 9-28 ity of tract tract 00:00: [place] infection) infection) 00 Me dical during during Branch , , first first trimester trimester History of History of Disease Active U nivers IBS IBS 9-21 ity of 00:: Medical Branch Disease Active Univers control control 8-14 ity of counseling counseling 00:00: [place] IUD IUD Disease Active 2019- Univers (intrauter (intrauter 4-07 it y of ine ine 00:00: [place] device) in device) in [address] Branch IUD IUD Disease Active 2019- Univers (intrauter (intrauter 4-07 it y of ine ine 00:00: [place] device) in device) in [address] Branch Encounter Encounter Disease Active Uni vers for IUD for IUD 4-07 [place] Encounter Encounter Disease Active 2019- Uni vers for IUD for IUD 3-19 ity of removal removal 00:00: [place] [facility] Obesity Obesity Disease Active 2019- Univers (BMI (BMI 3-19 ity of 30-39.9) 30-39.9) 00:00: Medical Branch Morbid Morbid Disease Active 2020- Univers obesity obesity 3-19 ity of 00:: Medical Branch Back pain Back pain Disease Active Uni vers 6-06 ity of 00:: Medical Branch History of History of Disease Active U nivers depression depression 5-16 it y of :: Medical Branch Severe Severe Disease Active 2018- Univers anemia anemia 5-15 ity of 00:: [place] [facility] Allergies, Adverse Reactions, Alerts Allergy Allergy Status Severity Reaction(s) Onset Inactive Treating Comm ents Source Name Type Date Date Clinician AMOXICIL DRUG Active High Hives Univers ROWAN INGREDI 8-04 ity of 00:00: [place] 00 Medical Branch Amoxicil Propensi Active Rash Univer s rowan ty to 09-26 ity of adverse 00:00: [place] reaction 00 Medical s Branch Amoxicil Propensi Active Rash [facility] rowan ty to 09-26 ity of adverse 00:00: [place] reaction 00 Medical s to Branch drug NO KNOWN Drug Active Univers ALLERGIE Class ity of S [facility] Social History Social Habit Start Date Stop Date Quantity Comments Source ASSERTION 2022-11-02 [facility] 00:00:00 [facility] Gender identity Universit y [facility] Sexual orientation [facility] Alcohol intake 2022-12-10 2022-12-10 0 /d [facility] 00:00:00 00:00:00 [facility] Tobacco use and 2022-11-12 2022-11-12 Smokeless Universit y of exposure 00:00:00 00:00:00 tobacco non-user [facility] History of Social 2022-09-26 2022-09-26 Univers ity of function 00:00:00 00:00:00 [facility] Sex Ass[birth year] At [birth year] Universit y of 00:00:00 00:00:00 [facility] Smoking Status Start Date Stop Date Source Never smoked tobacco [facility] Medications Ordered Filled Start Stop Current Ordering Indication Dosage Frequency Signature Comments Components Source Medication Medication Date Date Medication? Clinician (SIG) Name Name cephALEXin 2022-02- Yes [id number] 500mg Take 1 Univers (KEFLEX) 0-26 -06 capsule by ity of 500 mg 00:00: 05:59 mouth 4 [place] capsule 00 :00 (four) Medical times Branch daily for 10 days. proMETHazin 2022-02 Yes [id number] 25mg Take 1 Univers e 25 mg 0-18 tablet by ity of tablet 00:00: mouth [place] 00 every 4 Medical (four) Branch hours as needed for Nausea and Vomiting (N/V). proMETHazin 2022-02 Yes [id number] 25mg Take 1 Univers e 25 mg 0-18 tablet by ity of tablet 00:00: mouth [place] 00 every 4 Medical (four) Branch hours as needed for Nausea and Vomiting (N/V). proMETHazin 2022-02 Yes [id number] 25mg Take 1 Univers e 25 mg 0-18 tablet by ity of tablet 00:00: mouth [place] 00 every 4 Medical (four) Branch hours as needed for Nausea and Vomiting (N/V). cephALEXin 2022- Yes [id number] 500mg Take 1 Univers (KEFLEX) 11-20 capsule by ity of 500 mg 00:00: 04:59 mouth in [place] capsule 00 :00 the Medical morning Branch and 1 capsule at noon and 1 capsule in the evening. Do all this for 10 days. cephALEXin 2022- Yes [id number] 500mg Take 1 Univers (KEFLEX) 11-20 capsule by ity of 500 mg 00:00: 04:59 mouth in [place] capsule 00 :00 the Medical morning Branch and 1 capsule at noon and 1 capsule in the evening. Do all this for 10 days. cephALEXin 2022- Yes [id number] 500mg Take 1 Univers (KEFLEX) 11-20 capsule by ity of 500 mg 00:00: 04:59 mouth in [place] capsule 00 :00 the Medical morning Branch and 1 capsule at noon and 1 capsule in the evening. Do all this for 10 days. cephALEXin 2022- Yes [id number] 500mg Take 1 Univers (KEFLEX) 11-20 capsule by ity of 500 mg 00:00: 04:59 mouth in [place] capsule 00 :00 the Medical morning Branch and 1 capsule at noon and 1 capsule in the evening. Do all this for 10 days. PNV 67-iron Yes [id number] 1{tbl} Take 1 Univers ps-folate 9-20 tablet by ity o f no.1-dha 00:00: mouth in [place] (VITAFOL 00 the Medical ULTRA) 29 morning. Branch mg iron- 1 mg-200 mg Cap PNV 67-iron Yes [id number] 1{tbl} Take 1 Univers ps-folate 9-20 tablet by ity o f no.1-dha 00:00: mouth in [place] (VITAFOL 00 the Medical ULTRA) 29 morning. Branch mg iron- 1 mg-200 mg Cap PNV 67-iron Yes [id number] 1{tbl} Take 1 Univers ps-folate 9-20 tablet by ity o f no.1-dha 00:00: mouth in [place] (VITAFOL 00 the Medical ULTRA) 29 morning. Branch mg iron- 1 mg-200 mg Cap PNV 67-iron 2023-0 Yes [id number] 1{tbl} Take 1 Univers ps-folate 9-20 tablet by ity o f no.1-dha 00:00: mouth in [place] (VITAFOL 00 the Medical ULTRA) 29 morning. Branch mg iron- 1 mg-200 mg Cap PNV 67-iron 2023-0 Yes [id number] 1{tbl} Take 1 Univers ps-folate 9-20 tablet by ity o f no.1-dha 00:00: mouth in [place] (VITAFOL 00 the Medical ULTRA) 29 morning. Branch mg iron- 1 mg-200 mg Cap PNV 67-iron 2023-0 Yes [id number] 1{tbl} Take 1 Univers ps-folate 9-20 tablet by ity o f no.1-dha 00:00: mouth in [place] (VITAFOL 00 the Medical ULTRA) 29 morning. Branch mg iron- 1 mg-200 mg Cap PNV 67-iron 2023-0 Yes [id number] 1{tbl} Take 1 Univers ps-folate 9-20 tablet by ity o f no.1-dha 00:00: mouth in [place] (VITAFOL 00 the Medical ULTRA) 29 morning. Branch mg iron- 1 mg-200 mg Cap PNV 67-iron 2023-0 Yes [id number] 1{tbl} Take 1 Univers ps-folate 9-20 tablet by ity o f no.1-dha 00:00: mouth in [place] (VITAFOL 00 the Medical ULTRA) 29 morning. Branch mg iron- 1 mg-200 mg Cap PNV 67-iron 2023-0 Yes [id number] 1{tbl} Take 1 Univers ps-folate 9-20 tablet by ity o f no.1-dha 00:00: mouth in [place] (VITAFOL 00 the Medical ULTRA) 29 morning. Branch mg iron- 1 mg-200 mg Cap PNV 67-iron 2023-0 Yes [id number] 1{tbl} Take 1 Univers ps-folate 9-20 tablet by ity o f no.1-dha 00:00: mouth in [place] (VITAFOL 00 the Medical ULTRA) 29 morning. Branch mg iron- 1 mg-200 mg Cap PNV 67-iron 2023-0 Yes [id number] 1{tbl} Take 1 Univers ps-folate 9-20 tablet by ity o f no.1-dha 00:00: mouth in [place] (VITAFOL 00 the Medical ULTRA) 29 morning. Branch mg iron- 1 mg-200 mg Cap PNV 67-iron 2023-0 Yes [id number] 1{tbl} Take 1 Univers ps-folate 9-20 tablet by ity o f no.1-dha 00:00: mouth in [place] (VITAFOL 00 the Medical ULTRA) 29 morning. Branch mg iron- 1 mg-200 mg Cap PNV 67-iron 2023-0 Yes [id number] 1{tbl} Take 1 Univers ps-folate 9-20 tablet by ity o f no.1-dha 00:00: mouth in [place] (VITAFOL 00 the Medical ULTRA) 29 morning. Branch mg iron- 1 mg-200 mg Cap PNV 67-iron 2023-0 Yes [id number] 1{tbl} Take 1 Univers ps-folate 9-20 tablet by ity o f no.1-dha 00:00: mouth in [place] (VITAFOL 00 the Medical ULTRA) 29 morning. Branch mg iron- 1 mg-200 mg Cap PNV 67-iron 2023-0 Yes [id number] 1{tbl} Take 1 Univers ps-folate 9-20 tablet by ity o f no.1-dha 00:00: mouth in [place] (VITAFOL 00 the Medical ULTRA) 29 morning. Branch mg iron- 1 mg-200 mg Cap PNV 67-iron 2023-0 Yes [id number] 1{tbl} Take 1 Univers ps-folate 9-20 tablet by ity o f no.1-dha 00:00: mouth in [place] (VITAFOL 00 the Medical ULTRA) 29 morning. Branch mg iron- 1 mg-200 mg Cap cholestyram 2023-0 Yes 4g Take 1 Univ ers ine light 4 9-05 Packet by ity of gram packet 00:00: mouth in [place] 00 the Medical morning. Branch cholestyram 2023-0 Yes 4g Take 1 Univ ers ine light 4 9-05 Packet by ity of gram packet 00:00: mouth in [place] 00 the Medical morning. Branch cholestyram 2023-0 Yes 4g Take 1 Univ ers ine light 4 9-05 Packet by ity of gram packet 00:00: mouth in [place] 00 the Medical morning. Branch cholestyram 2023-0 Yes 4g Take 1 Univ ers ine light 4 9-05 Packet by ity of gram packet 00:00: mouth in [place] 00 the Medical morning. Branch cholestyram 2023-0 Yes 4g Take 1 Univ ers ine light 4 9-05 Packet by ity of gram packet 00:00: mouth in [place] 00 the Medical morning. Branch cholestyram 2023-0 Yes 4g Take 1 Univ ers ine light 4 9-05 Packet by ity of gram packet 00:00: mouth in [place] 00 the Medical morning. Branch cholestyram 2023-0 Yes 4g Take 1 Univ ers ine light 4 9-05 Packet by ity of gram packet 00:00: mouth in [place] 00 the Medical morning. Branch cholestyram 3-0 Yes 4g Take 1 Univ ers ine light 4 9-05 Packet by ity of gram packet 00:00: mouth in [place] 00 the Medical morning. Branch cholestyram 3-0 Yes 4g Take 1 Univ ers ine light 4 9-05 Packet by ity of gram packet 00:00: mouth in [place] 00 the Medical morning. Branch cholestyram 3-0 Yes 4g Take 1 Univ ers ine light 4 9-05 Packet by ity of gram packet 00:00: mouth in [place] 00 the Medical morning. Branch cholestyram 2023-0 Yes 4g Take 1 Univ ers ine light 4 9-05 Packet by ity of gram packet 00:00: mouth in [place] 00 the Medical morning. Branch cholestyram 2023-0 Yes 4g Take 1 Univ ers ine light 4 9-05 Packet by ity of gram packet 00:00: mouth in [place] 00 the Medical morning. Branch cholestyram 2023-0 Yes 4g Take 1 Univ ers ine light 4 9-05 Packet by ity of gram packet 00:00: mouth in [place] 00 the Medical morning. Branch cholestyram 2023-0 Yes 4g Take 1 Univ ers ine light 4 9-05 Packet by ity of gram packet 00:00: mouth in [place] 00 the Medical morning. Branch cholestyram 2023-0 Yes 4g Take 1 Univ ers ine light 4 9-05 Packet by ity of gram packet 00:00: mouth in [place] 00 the Medical morning. Branch cholestyram 2022-0 Yes 4g Take 1 Univ ers ine light 4 9-05 Packet by ity of gram packet 00:00: mouth in [place] 00 the Medical morning. Branch lactic 2022-0 Yes [id number] Insert 1 Un april acid-citric 8-14 Vaginal ity o f -potassium 00:00: Insert [place] (PHEXXI) 00 into Medical 1.8-1-0.4 % vagina Branch Gel every 1 (one) hour. Insert 1hr prior to intercours e. lactic 2022-0 Yes [id number] Insert 1 Un april acid-citric 8-14 Vaginal ity o f -potassium 00:00: Insert [place] (PHEXXI) 00 into Medical 1.8-1-0.4 % vagina Branch Gel every 1 (one) hour. Insert 1hr prior to intercours e. lactic 2022-0 Yes [id number] Insert 1 Un april acid-citric 8-14 Vaginal ity o f -potassium 00:00: Insert [place] (PHEXXI) 00 into Medical 1.8-1-0.4 % vagina Branch Gel every 1 (one) hour. Insert 1hr prior to intercours e. lactic 2022-0 2023- No [id number] Insert 1 U nivers acid-citric 8-14 09-20 Vaginal ity of -potassium 00:00: 00:[place] (PHEXXI) 00 :00 into Medical 1.8-1-0.4 % vagina Branch Gel every 1 (one) hour. Insert 1hr prior to intercours e. escitalopra 3-0 Yes 10mg Take 1 Univ ers m oxalate 6-26 tablet by ity o f 10 mg 00:00: mouth in [place] tablet 00 the Medical morning. Branch escitalopra 2023-0 Yes 10mg Take 1 Univ ers m oxalate 6-26 tablet by ity o f 10 mg 00:00: mouth in [place] tablet 00 the Medical morning. Branch escitalopra 2023-0 Yes 10mg Take 1 Univ ers m oxalate 6-26 tablet by ity o f 10 mg 00:00: mouth in [place] tablet 00 the Medical morning. Branch escitalopra 2023-0 Yes 10mg Take 1 Univ ers m oxalate 6-26 tablet by ity o f 10 mg 00:00: mouth in [place] tablet 00 the Medical morning. Branch escitalopra 2023-0 Yes 10mg Take 1 Univ ers m oxalate 6-26 tablet by ity o f 10 mg 00:00: mouth in [place] tablet 00 the Medical morning. Branch escitalopra 2023-0 Yes 10mg Take 1 Univ ers m oxalate 6-26 tablet by ity o f 10 mg 00:00: mouth in [place] tablet 00 the Medical morning. Branch escitalopra 2023-0 Yes 10mg Take 1 Univ ers m oxalate 6-26 tablet by ity o f 10 mg 00:00: mouth in [place] tablet 00 the Medical morning. Branch escitalopra 2023-0 Yes 10mg Take 1 Univ ers m oxalate 6-26 tablet by ity o f 10 mg 00:00: mouth in [place] tablet 00 the Medical morning. Branch escitalopra 2023-0 Yes 10mg Take 1 Univ ers m oxalate 6-26 tablet by ity o f 10 mg 00:00: mouth in [place] tablet 00 the Medical morning. Branch escitalopra 2023-0 Yes 10mg Take 1 Univ ers m oxalate 6-26 tablet by ity o f 10 mg 00:00: mouth in [place] tablet 00 the Medical morning. Branch escitalopra 2023-0 Yes 10mg Take 1 Univ ers m oxalate 6-26 tablet by ity o f 10 mg 00:00: mouth in [place] tablet 00 the Medical morning. Branch escitalopra 2023-0 Yes 10mg Take 1 Univ ers m oxalate 6-26 tablet by ity o f 10 mg 00:00: mouth in [place] tablet 00 the Medical morning. Branch escitalopra 2023-0 Yes 10mg Take 1 Univ ers m oxalate 6-26 tablet by ity o f 10 mg 00:00: mouth in [place] tablet 00 the Medical morning. Branch escitalopra 2023-0 Yes 10mg Take 1 Univ ers m oxalate 6-26 tablet by ity o f 10 mg 00:00: mouth in [place] tablet 00 the Medical morning. Branch escitalopra 2023-0 Yes 10mg Take 1 Univ ers m oxalate 6-26 tablet by ity o f 10 mg 00:00: mouth in [place] tablet 00 the Medical morning. Branch escitalopra 2023-0 Yes 10mg Take 1 Univ ers m oxalate 6-26 tablet by ity o f 10 mg 00:00: mouth in [place] tablet 00 the Medical morning. Branch escitalopra 2023-0 Yes 10mg Take 1 Univ ers m oxalate 6-26 tablet by ity o f 10 mg 00:00: mouth in [place] tablet 00 the Medical morning. Branch escitalopra 2023-0 Yes 10mg Take 1 Univ ers m oxalate 6-26 tablet by ity o f 10 mg 00:00: mouth in [place] tablet 00 the Medical morning. Branch escitalopra 2023-0 Yes 10mg Take 1 Univ ers m oxalate 6-26 tablet by ity o f 10 mg 00:00: mouth in [place] tablet 00 the Medical morning. Branch escitalopra 2023-0 Yes 10mg Take 1 Univ ers m oxalate 6-26 tablet by ity o f 10 mg 00:00: mouth in [place] tablet 00 the Medical morning. Branch escitalopra 2023-0 Yes 10mg Take 1 Univ ers m oxalate 6-26 tablet by ity o f 10 mg 00:00: mouth in [place] tablet 00 the Medical morning. Branch escitalopra 2023-0 Yes 10mg Take 1 Univ ers m oxalate 6-26 tablet by ity o f 10 mg 00:00: mouth in [place] tablet 00 the Medical morning. Branch escitalopra 2023-0 Yes 10mg Take 1 Univ ers m oxalate 6-26 tablet by ity o f 10 mg 00:00: mouth in [place] tablet 00 the Medical morning. Branch escitalopra 2023-0 Yes 10mg Take 1 Univ ers m oxalate 6-26 tablet by ity o f 10 mg 00:00: mouth in [place] tablet 00 the Medical morning. Branch famotidine 2023-0 Yes 20mg Take 1 Unive rs 20 mg 6-25 tablet by ity of tablet 00:00: mouth in [place] 00 the Medical morning. Branch famotidine 2023-0 Yes 20mg Take 1 Unive rs 20 mg 6-25 tablet by ity of tablet 00:00: mouth in [place] 00 the Medical morning. Branch famotidine 2023-0 Yes 20mg Take 1 Unive rs 20 mg 6-25 tablet by ity of tablet 00:00: mouth in [place] 00 the Medical morning. Branch famotidine 2023-0 Yes 20mg Take 1 Unive rs 20 mg 6-25 tablet by ity of tablet 00:00: mouth in [place] the Medical morning. Branch famotidine 2023-0 Yes 20mg Take 1 Unive rs 20 mg 6-25 tablet by ity of tablet 00:00: mouth in [place] the Medical morning. Branch famotidine 2023-0 Yes 20mg Take 1 Unive rs 20 mg 6-25 tablet by ity of tablet 00:00: mouth in [place] the Medical morning. Branch famotidine 2023-0 Yes 20mg Take 1 Unive rs 20 mg 6-25 tablet by ity of tablet 00:00: mouth in [place] the Medical morning. Branch famotidine 2023-0 Yes 20mg Take 1 Unive rs 20 mg 6-25 tablet by ity of tablet 00:00: mouth in [place] the Medical morning. Branch famotidine 2023-0 Yes 20mg Take 1 Unive rs 20 mg 6-25 tablet by ity of tablet 00:00: mouth in [place] the Medical morning. Branch famotidine 2023-0 Yes 20mg Take 1 Unive rs 20 mg 6-25 tablet by ity of tablet 00:00: mouth in [place] the Medical morning. Branch famotidine 2023-0 Yes 20mg Take 1 Unive rs 20 mg 6-25 tablet by ity of tablet 00:00: mouth in [place] the Medical morning. Branch famotidine 2023-0 Yes 20mg Take 1 Unive rs 20 mg 6-25 tablet by ity of tablet 00:00: mouth in [place] the Medical morning. Branch famotidine 2023-0 Yes 20mg Take 1 Unive rs 20 mg 6-25 tablet by ity of tablet 00:00: mouth in [place] the Medical morning. Branch famotidine 2023-0 Yes 20mg Take 1 Unive rs 20 mg 6-25 tablet by ity of tablet 00:00: mouth in [place] the Medical morning. Branch famotidine 2023-0 Yes 20mg Take 1 Unive rs 20 mg 6-25 tablet by ity of tablet 00:00: mouth in [place] the Medical morning. Branch famotidine 2023-0 Yes 20mg Take 1 Unive rs 20 mg 6-25 tablet by ity of tablet 00:00: mouth in [place] the Medical morning. Branch famotidine 2023-0 Yes 20mg Take 1 Unive rs 20 mg 6-25 tablet by ity of tablet 00:00: mouth in [place] the Medical morning. Branch famotidine 2023-0 Yes 20mg Take 1 Unive rs 20 mg 6-25 tablet by ity of tablet 00:00: mouth in [place] the Medical morning. Branch famotidine 2023-0 Yes 20mg Take 1 Unive rs 20 mg 6-25 tablet by ity of tablet 00:00: mouth in [place] the Medical morning. Branch famotidine 2023-0 Yes 20mg Take 1 Unive rs 20 mg 6-25 tablet by ity of tablet 00:00: mouth in [place] the Medical morning. Branch famotidine 2023-0 Yes 20mg Take 1 Unive rs 20 mg 6-25 tablet by ity of tablet 00:00: mouth in [place] the Medical morning. Branch famotidine 2023-0 Yes 20mg Take 1 Unive rs 20 mg 6-25 tablet by ity of tablet 00:00: mouth in [place] the Medical morning. Branch famotidine 2023-0 Yes 20mg Take 1 Unive rs 20 mg 6-25 tablet by ity of tablet 00:00: mouth in [place] the Medical morning. Branch famotidine 2023-0 Yes 20mg Take 1 Unive rs 20 mg 6-25 tablet by ity of tablet 00:00: mouth in [place] the Medical morning. Branch levonorgest 2020-0 2020- No 1{devic [place] rel 05-30- e} ity of (LILETTA) 22:00: 21:00 [place] IUD 1 00 :00 [employer] [place] levonorgest 2020-0 2020- No 1{devic 1 Device, Univers rel 05-30 04- e} Intrauteri ity of (LILETTA) 22:00: 21:00 [place]CE, [place] 1 00 :00 1 dose, [employer] [facility] 05/31/19 Branch at 1700, Routine levonorgest 2020-0 2020- No 1{devic Un [place]ril rel 05-30 04- e} ity of (LILETTA) 22:00: 21:00 [place] IUD 1 00 :00 [employer] [place] levonorgest 2020-0 2020- No 1{devic 1 Device, [facility] 05-30 e} Intrauteri ity of (LILETTA) 22:00: 21:00 [place]CE, [place] I[place] 1 00 :00 1 dose, [employer] 05/31/19 Branch at 1700, Routine IBUPROFEN Yes [id number] TAKE 1 U nivers 600 mg 6-07 TABLET BY ity of tablet 00:00: MOUTH [place] 00 EVERY 6 Medical HOURS Branch NEEDED FOR PAIN. TAKE WITH FOOD OR MILK IBUPROFEN Yes [id number] TAKE 1 U nivers 600 mg 6-07 TABLET BY ity of tablet 00:00: MOUTH [place] 00 EVERY 6 Medical HOURS Branch NEEDED FOR PAIN. TAKE WITH FOOD OR MILK IBUPROFEN Yes [id number] TAKE 1 U nivers 600 mg 6-07 TABLET BY ity of tablet 00:00: MOUTH [place] 00 EVERY 6 Medical HOURS Branch NEEDED FOR PAIN. TAKE WITH FOOD OR MILK IBUPROFEN Yes [id number] TAKE 1 U nivers 600 mg 6-07 TABLET BY ity of tablet 00:00: MOUTH [place] 00 EVERY 6 Medical HOURS Branch NEEDED FOR PAIN. TAKE WITH FOOD OR MILK IBUPROFEN Yes [id number] TAKE 1 U nivers 600 mg 6-07 TABLET BY ity of tablet 00:00: MOUTH [place] 00 EVERY 6 Medical HOURS Branch NEEDED FOR PAIN. TAKE WITH FOOD OR MILK IBUPROFEN Yes [id number] TAKE 1 U nivers 600 mg 6-07 TABLET BY ity of tablet 00:00: MOUTH [place] 00 EVERY 6 Medical HOURS Branch NEEDED FOR PAIN. TAKE WITH FOOD OR MILK IBUPROFEN Yes [id number] TAKE 1 U nivers 600 mg 6-07 TABLET BY ity of tablet 00:00: MOUTH [place] 00 EVERY 6 Medical HOURS Branch NEEDED FOR PAIN. TAKE WITH FOOD OR MILK IBUPROFEN Yes [id number] TAKE 1 U nivers 600 mg 6-07 TABLET BY ity of tablet 00:00: MOUTH [place] 00 EVERY 6 Medical HOURS Branch NEEDED FOR PAIN. TAKE WITH FOOD OR MILK IBUPROFEN Yes [id number] TAKE 1 U nivers 600 mg 6-07 TABLET BY ity of tablet 00:00: MOUTH [place] 00 EVERY 6 Medical HOURS Branch NEEDED FOR PAIN. TAKE WITH FOOD OR MILK IBUPROFEN Yes [id number] TAKE 1 U nivers 600 mg 6-07 TABLET BY ity of tablet 00:00: MOUTH [place] 00 EVERY 6 Medical HOURS Branch NEEDED FOR PAIN. TAKE WITH FOOD OR MILK IBUPROFEN Yes [id number] TAKE 1 U nivers 600 mg 6-07 TABLET BY ity of tablet 00:00: MOUTH [place] 00 EVERY 6 Medical HOURS Branch NEEDED FOR PAIN. TAKE WITH FOOD OR MILK IBUPROFEN 2022- No [id number] TAKE 1 Univers 600 mg 6-07 08-04 TABLET BY ity of tablet 00:00: 00:00 MOUTH [place] 00 :00 EVERY 6 Medical HOURS Branch NEEDED FOR PAIN. TAKE WITH FOOD OR MILK IBUPROFEN 2022- No [id number] TAKE 1 Univers 600 mg 6-07 08-04 TABLET BY ity of tablet 00:00: 00:00 MOUTH [place] 00 :00 EVERY 6 Medical HOURS Branch NEEDED FOR PAIN. TAKE WITH FOOD OR MILK IBUPROFEN 2022- No [id number] TAKE 1 Univers 600 mg 6-07 08-04 TABLET BY ity of tablet 00:00: 00:00 MOUTH [place] 00 :00 EVERY 6 Medical HOURS Branch NEEDED FOR PAIN. TAKE WITH FOOD OR MILK IBUPROFEN 2022- No [id number] TAKE 1 Univers 600 mg 6-07 08-04 TABLET BY ity of tablet 00:00: 00:00 MOUTH [place] 00 :00 EVERY 6 Medical HOURS Branch NEEDED FOR PAIN. TAKE WITH FOOD OR MILK ferrous Yes [id number] 325mg Take 1 Un april sulfate 325 6-06 tablet by ity of mg (65 mg 00:00: mouth [place] iron) 00 daily. Medical tablet Branch Iron Fum & Yes [id number] 1{capsu Take 1 Univers P-FA-Vit B 6-06 le} capsule by ity of & C No.9 00:00: mouth [place] (INTEGRA 00 daily. Medical PLUS) 125 Branch mg iron- 1 mg Cap ferrous Yes [id number] 325mg Take 1 Un april sulfate 325 6-06 tablet by ity of mg (65 mg 00:00: mouth [place] iron) 00 daily. Medical tablet Branch Iron Fum & Yes [id number] 1{capsu Take 1 Univers P-FA-Vit B 6-06 le} capsule by ity of & C No.9 00:00: mouth [place] (INTEGRA 00 daily. Medical PLUS) 125 Branch mg iron- 1 mg Cap ferrous Yes [id number] 325mg Take 1 Un april sulfate 325 6-06 tablet by ity of mg (65 mg 00:00: mouth [place] iron) 00 daily. Medical tablet Branch Iron Fum & Yes [id number] 1{capsu Take 1 Univers P-FA-Vit B 6-06 le} capsule by ity of & C No.9 00:00: mouth [place] (INTEGRA 00 daily. Medical PLUS) 125 Branch mg iron- 1 mg Cap ferrous Yes [id number] 325mg Take 1 Un april sulfate 325 6-06 tablet by ity of mg (65 mg 00:00: mouth [place] iron) 00 daily. Medical tablet Branch Iron Fum & Yes [id number] 1{capsu Take 1 Univers P-FA-Vit B 6-06 le} capsule by ity of & C No.9 00:00: mouth [place] (INTEGRA 00 daily. Medical PLUS) 125 Branch mg iron- 1 mg Cap ferrous Yes [id number] 325mg Take 1 Un april sulfate 325 6-06 tablet by ity of mg (65 mg 00:00: mouth [place] iron) 00 daily. Medical tablet Branch Iron Fum & Yes [id number] 1{capsu Take 1 Univers P-FA-Vit B 6-06 le} capsule by ity of & C No.9 00:00: mouth [place] (INTEGRA 00 daily. Medical PLUS) 125 Branch mg iron- 1 mg Cap ferrous Yes [id number] 325mg Take 1 Un april sulfate 325 6-06 tablet by ity of mg (65 mg 00:00: mouth [place] iron) 00 daily. Medical tablet Branch Iron Fum & Yes [id number] 1{capsu Take 1 Univers P-FA-Vit B 6-06 le} capsule by ity of & C No.9 00:00: mouth [place] (INTEGRA 00 daily. Medical PLUS) 125 Branch mg iron- 1 mg Cap ferrous Yes [id number] 325mg Take 1 Un april sulfate 325 6-06 tablet by ity of mg (65 mg 00:00: mouth [place] iron) 00 daily. Medical tablet Branch Iron Fum & Yes [id number] 1{capsu Take 1 [facility] P-FA-Vit B 6-06 le} capsule by ity of & C No.9 00:00: mouth [place] (INTE[facility]RA 00 daily. Medical PLUS) 125 Branch mg iron- 1 mg Cap ferrous Yes [id number] 325mg Take 1 Un april sulfate 325 6-06 tablet by ity of mg (65 mg 00:00: mouth [place] iron) 00 daily. Medical tablet Branch Iron Fum & Yes [id number] 1{capsu Take 1 Univers P-FA-Vit B 6-06 le} capsule by ity of & C No.9 00:00: mouth [place] (INTE[facility]RA 00 daily. Medical PLUS) 125 Branch mg iron- 1 mg Cap ferrous Yes [id number] 325mg Take 1 Un april sulfate 325 6-06 tablet by ity of mg (65 mg 00:00: mouth [place] iron) 00 daily. Medical tablet Branch Iron Fum & Yes [id number] 1{capsu Take 1 [facility] P-FA-Vit B 6-06 le} capsule by ity of & C No.9 00:00: mouth [place] (INTEGRA 00 daily. Medical PLUS) 125 Branch mg iron- 1 mg Cap ferrous Yes [id number] 325mg Take 1 Un april sulfate 325 6-06 tablet by ity of mg (65 mg 00:00: mouth [place] iron) 00 daily. Medical tablet Branch Iron Fum & Yes [id number] 1{capsu Take 1 [facility] P-FA-Vit B 6-06 le} capsule by ity of & C No.9 00:00: mouth [place] (INTE[facility]RA 00 daily. Medical PLUS) 125 Branch mg iron- 1 mg Cap ferrous Yes [id number] 325mg Take 1 Un april sulfate 325 6-06 tablet by ity of mg (65 mg 00:00: mouth [place] iron) 00 daily. Medical tablet Branch Iron Fum & Yes [id number] 1{capsu Take 1 [facility] P-FA-Vit B 6-06 le} capsule by ity of & C No.9 00:00: mouth [place] (INTEGRA 00 daily. Medical PLUS) 125 Branch mg iron- 1 mg Cap ferrous 3- No [id number] 325mg Take 1 U nivers sulfate 325 6-06 08-04 tablet by it y of mg (65 mg 00:00: 00:00 mouth [place] iron) 00 :00 daily. Medical tablet Branch Iron Fum & 2022- No [id number] 1{capsu Take 1 [facility] P-FA-Vit B 07-29 le} capsule by it y of & C No.9 00:00: 00:00 mouth [place] (INTE[facility]RA 00 :00 daily. Medical PLUS) 125 Branch mg iron- 1 mg Cap ferrous 2022- No [id number] 325mg Take 1 U nivers sulfate 325 07-29- tablet by it y of mg (65 mg 00:00: 00:00 mouth [place] iron) 00 :00 daily. Medical tablet Branch Iron Fum & 2022- No [id number] 1{capsu Take 1 [facility] P-FA-Vit B 07-29- le} capsule by it y of & C No.9 00:00: 00:00 mouth [place] (INTE[facility]RA 00 :00 daily. Medical PLUS) 125 Branch mg iron- 1 mg Cap ferrous 2022- No [id number] 325mg Take 1 U nivers sulfate 325 07-29 tablet by it y of mg (65 mg 00:00: 00:00 mouth [place] iron) 00 :00 daily. Medical tablet Branch Iron Fum & 2022- No [id number] 1{capsu Take 1 Univers P-FA-Vit B 07-29 le} capsule by it y of & C No.9 00:00: 00:00 mouth [place] (INTE[facility]RA 00 :00 daily. Medical PLUS) 125 Branch mg iron- 1 mg Cap ferrous 2022- No [id number] 325mg Take 1 U nivers sulfate 325 07-29- tablet by it y of mg (65 mg 00:00: 00:00 mouth [place] iron) 00 :00 daily. Medical tablet Branch Iron Fum & 2022- No [id number] 1{capsu Take 1 [facility] P-FA-Vit B 07-29- le} capsule by it y of & C No.9 00:00: 00:00 mouth [place] (INTE[facility]RA 00 :00 daily. Medical PLUS) 125 Branch mg iron- 1 mg Cap docusate Yes [id number] 240mg Take 1 U nivers calcium 240 5-17 capsule by it y of mg capsule 00:00: mouth [place] 00 daily as Medical needed for Branch Constipati on. docusate Yes [id number] 240mg Take 1 U nivers calcium 240 5-17 capsule by it y of mg capsule 00:00: mouth [place] 00 daily as Medical needed for Branch Constipati on. docusate Yes [id number] 240mg Take 1 U nivers calcium 240 5-17 capsule by it y of mg capsule 00:00: mouth once [place] 00 daily as Medical needed for Branch Constipati on. docusate Yes [id number] 240mg Take 1 U nivers calcium 240 5-17 capsule by it y of mg capsule 00:00: mouth once [place] 00 daily as Medical needed for Branch Constipati on. docusate Yes [id number] 240mg Take 1 U nivers calcium 240 5-17 capsule by it y of mg capsule 00:00: mouth [place] 00 daily as Medical needed for Branch Constipati on. docusate Yes [id number] 240mg Take 1 U nivers calcium 240 5-17 capsule by it y of mg capsule 00:00: mouth [place] 00 daily as Medical needed for Branch Constipati on. docusate Yes [id number] 240mg Take 1 U nivers calcium 240 5-17 capsule by it y of mg capsule 00:00: mouth [place] 00 daily as Medical needed for Branch Constipati on. docusate Yes [id number] 240mg Take 1 U nivers calcium 240 5-17 capsule by it y of mg capsule 00:00: mouth once [place] 00 daily as Medical needed for Branch Constipati on. docusate Yes [id number] 240mg Take 1 U nivers calcium 240 5-17 capsule by it y of mg capsule 00:00: mouth once [place] 00 daily as Medical needed for Branch Constipati on. docusate Yes [id number] 240mg Take 1 U nivers calcium 240 5-17 capsule by it y of mg capsule 00:00: mouth once [place] 00 daily as Medical needed for Branch Constipati on. docusate Yes [id number] 240mg Take 1 U nivers calcium 240 5-17 capsule by it y of mg capsule 00:00: mouth once [place] 00 daily as Medical needed for Branch Constipati on. docusate 2022- No [id number] 240mg Take 1 Univers calcium 240 5-17 08-04 capsule by i ty of mg capsule 00:00: 00:00 mouth once [place] 00 :00 daily as Medical needed for Branch Constipati on. docusate 2022- No [id number] 240mg Take 1 Univers calcium 240 5-17 08-04 capsule by i ty of mg capsule 00:00: 00:00 mouth once [place] 00 :00 daily as Medical needed for Branch Constipati on. docusate 2022- No [id number] 240mg Take 1 Univers calcium 240 5-17 08-04 capsule by i ty of mg capsule 00:00: 00:00 mouth once [place] 00 :00 daily as Medical needed for Branch Constipati on. docusate 2022- No [id number] 240mg Take 1 Univers calcium 240 5-17 08-04 capsule by i ty of mg capsule 00:00: 00:00 mouth once [place] 00 :00 daily as Medical needed for Branch Constipati on. Immunizations Ordered Immunization Filled Date Status Comments Sour ce Name Immunization Name HPV9 2018-07-09 Completed [facility] of 00:00:00 [facility] HPV9 2018-07-09 Completed [facility] of 00:00:00 [facility] Branch HPV9 2018-07-09 Completed University of 00:00:00 [facility] Branch HPV9 2018-07-09 Completed University of 00:00:00 [facility] HPV9 2018-07-09 Completed University of 00:00:00 [facility] Branch HPV9 2018-07-09 Completed University of 00:00:00 [facility] Branch HPV9 2018-07-09 Completed University of 00:00:00 [facility] Branch HPV9 2018-07-09 Completed University of 00:00:00 [facility] Branch HPV9 2018-07-09 Completed University of 00:00:00 [facility] Branch HPV9 2018-07-09 Completed University of 00:00:00 [facility] Branch HPV9 2018-07-09 Completed University of 00:00:00 [facility] Branch HPV9 2018-07-09 Completed University of 00:00:00 [facility] Branch HPV9 2018-07-09 Completed University of 00:00:00 [facility] Branch HPV9 2018-07-09 Completed University of 00:00:00 [facility] HPV9 2018-07-09 Completed University of 00:00:00 [facility] HPV9 2018-07-09 Completed University of 00:00:00 [facility] HPV9 2018-07-09 Completed University of 00:00:00 [facility] HPV9 2018-07-09 Completed University of 00:00:00 [facility] HPV9 2018-07-09 Completed University of 00:00:00 [facility] Influenza Virus 2018-04-29 Completed Universit y of Vaccine Quad .5 mL 00:00:00 [facility] 6+ MO Branch Tdap 2018-04-29 Completed University of 00:00:00 [facility] Influenza Virus 2018-04-29 Completed Universit y of Vaccine Quad .5 mL 00:00:00 [facility] 6+ MO Branch Tdap 2018-04-29 Completed University of 00:00:00 [facility] Influenza Virus 2018-04-29 Completed Universit y of Vaccine Quad .5 mL 00:00:00 [facility] 6+ MO Branch Tdap 2018-04-29 Completed University of 00:00:00 [facility] Influenza Virus 2018-04-29 Completed Universit y of Vaccine Quad .5 mL 00:00:00 [facility] 6+ MO Branch TDAP 2018-04-29 Completed University of 00:00:00 [facility] Influenza Virus 2018-04-29 Completed Universit y of Vaccine Quad .5 mL 00:00:00 [facility] 6+ MO Branch Influenza Virus 2018-04-29 Completed Universit y of Vaccine Quad .5 mL 00:00:00 [facility] 6+ MO Branch TDAP 2018-04-29 Completed University of 00:00:00 [facility] Tdap 2018-04-29 Completed University of 00:00:00 [facility] Influenza Virus 2018-04-29 Completed Universit y of Vaccine Quad .5 mL 00:00:00 [facility] 6+ MO Branch TDAP 2018-04-29 Completed University of 00:00:00 [facility] Influenza Virus 2018-04-29 Completed Universit y of Vaccine Quad .5 mL 00:00:00 [facility] 6+ MO Branch TDAP 2018-04-29 Completed University of 00:00:00 [facility] Influenza Virus 2018-04-29 Completed Universit y of Vaccine Quad .5 mL 00:00:00 [facility] 6+ MO Branch TDAP 2018-04-29 Completed University of 00:00:00 [facility] Influenza Virus 2018-04-29 Completed Universit y of Vaccine Quad .5 mL 00:00:00 [facility] 6+ MO Branch TDAP 2018-04-29 Completed University of 00:00:00 [facility] Influenza Virus 2018-04-29 Completed Universit y of Vaccine Quad .5 mL 00:00:00 [facility] 6+ MO Branch TDAP 2018-04-29 Completed University of 00:00:00 [facility] Influenza Virus 2018-04-29 Completed Universit y of Vaccine Quad .5 mL 00:00:00 [facility] 6+ MO Branch TDAP 2018-04-29 Completed University of 00:00:00 [facility] Influenza Virus 2018-04-29 Completed Universit y of Vaccine Quad .5 mL 00:00:00 [facility] 6+ MO Branch TDAP 2018-04-29 Completed University of 00:00:00 [facility] Influenza Virus 2018-04-29 Completed Universit y of Vaccine Quad .5 mL 00:00:00 [facility] 6+ MO Branch TDAP 2018-04-29 Completed University of 00:00:00 [facility] Influenza Virus 2018-04-29 Completed Universit y of Vaccine Quad .5 mL 00:00:00 [facility] 6+ MO Branch Tdap 2018-04-29 Completed University of 00:00:00 [facility] Influenza Virus 2018-04-29 Completed Universit y of Vaccine Quad .5 mL 00:00:00 [facility] 6+ MO Branch Tdap 2018-04-29 Completed University of 00:00:00 [facility] Influenza Virus 2018-04-29 Completed Universit y of Vaccine Quad .5 mL 00:00:00 [facility] 6+ MO Branch Tdap 2018-04-29 Completed University of 00:00:00 [facility] Influenza Virus 2018-04-29 Completed Universit y of Vaccine Quad .5 mL 00:00:00 [facility] 6+ MO Branch Tdap 2018-04-29 Completed University of 00:00:00 [facility] Influenza Virus 2018-04-29 Completed Universit y of Vaccine Quad .5 mL 00:00:00 [facility] 6+ MO Branch Tdap 2018-04-29 Completed University of 00:00:00 [facility] 2015-10-18 Completed University of 00:00:00 [facility] Tdap 2015-10-18 Completed University of 00:00:00 [facility] Tdap 2015-10-18 Completed University of 00:00:00 [facility] TDAP 2015-10-18 Completed University of 00:00:00 [facility] Tdap 2015-10-18 Completed University of 00:00:00 [facility] TDAP 2015-10-18 Completed University of 00:00:00 [facility] TDAP 2015-10-18 Completed [facility] of 00:00:00 [facility] TDAP 2015-10-18 Completed [facility] of 00:00:00 [facility] TDAP 2015-10-18 Completed [facility] of 00:00:00 [facility] TDAP 2015-10-18 Completed [facility] of 00:00:00 [facility] TDAP 2015-10-18 Completed [facility] of 00:00:00 [facility] TDAP 2015-10-18 Completed University of 00:00:00 [facility] Branch TDAP 2015-10-18 Completed University of 00:00:00 [facility] Branch TDAP 2015-10-18 Completed University of 00:00:00 [facility] Tdap 2015-10-18 Completed University of 00:00:00 [facility] Tdap 2015-10-18 Completed University of 00:00:00 [facility] Tdap 2015-10-18 Completed University of 00:00:00 [facility] Tdap 2015-10-18 Completed University of 00:00:00 [facility] Branch Tdap 2015-10-18 Completed University of 00:00:00 [facility] Branch Tdap 2012-09-29 Completed University of 00:00:00 [facility] Tdap 2012-09-29 Completed University of 00:00:00 [facility] Tdap 2012-09-29 Completed University of 00:00:00 [facility] TDAP 2012-09-29 Completed University of 00:00:00 [facility] Tdap 2012-09-29 Completed University of 00:00:00 [facility] TDAP 2012-09-29 Completed University of 00:00:00 [facility] TDAP 2012-09-29 Completed University of 00:00:00 [facility] TDAP 2012-09-29 Completed University of 00:00:00 [facility] TDAP 2012-09-29 Completed University of 00:00:00 [facility] TDAP 2012-09-29 Completed University of 00:00:00 [facility] TDAP 2012-09-29 Completed University of 00:00:00 [facility] TDAP 2012-09-29 Completed University of 00:00:00 [facility] TDAP 2012-09-29 Completed University of 00:00:00 [facility] TDAP 2012-09-29 Completed University of 00:00:00 [facility] Tdap 2012-09-29 Completed University of 00:00:00 [facility] Tdap 2012-09-29 Completed University of 00:00:00 [facility] Tdap 2012-09-29 Completed University of 00:00:00 [facility] Tdap 2012-09-29 Completed University of 00:00:00 [facility] Tdap 2012-09-29 Completed University of 00:00:00 [facility] DTaP, Unspecified Unknown Completed Univers ity of Formulation [facility] Hep B, Adol or Pedi Unknown Completed Unive rsity of Dosage [facility] Hep B, Adol or Pedi Unknown Completed Unive rsity of Dosage [facility] Hep B, Adol or Pedi Unknown Completed Unive rsity of Dosage [facility] Haemophilus Unknown Completed [facility] influenzae type b [place] [facility] vaccine, conjugate Branch unspecified formulation Haemophilus Unknown Completed [facility] influenzae type b [place] [facility] vaccine, conjugate [place] unspecified formulation Haemophilus Unknown Completed [facility] influenzae type b [place] [facility] vaccine, conjugate [place] unspecified formulation HIB 4 Dose Schedule Unknown [facility] [place] [facility] Com[facility] viv (groups A, C, Y and Branc h W-135) conjugate vaccine (MCV4P) MMR Unknown Completed [facility] MMR Unknown Completed [facility] IPV Unknown Completed [facility] IPV Unknown Completed [facility] IPV Unknown Completed [facility] IPV Unknown Completed [facility] TDAP Unknown Completed [facility] Varicella Unknown Completed University of (varivax)(chicken [place] [facility] edical pox) Branch Varicella Unknown Completed University (varivax)(chicken [place] [facility] edical pox) Branch TDAP Unknown Completed [facility] TDAP Unknown Completed [facility] Influenza Virus Unknown Completed Universit y of Vaccine Quad .5 mL [facility] 6+ MO Branch (FLUZONE/FLULAVAL/FL UARIX) TDAP Unknown Completed [facility] HPV[address] [facility] DTaP, Unspecified Unknown Completed Univers ity of Formulation [facility] DTaP, Unspecified Unknown Completed Univers ity of Formulation [facility] DTaP, Unspecified Unknown Completed Univers ity of Formulation [facility] DTaP, Unspecified Unknown Completed Univers ity of Formulation [facility] DTaP, Unspecified Unknown Completed Univers ity of Formulation [facility] Hep B, Adol or Pedi Unknown Completed Unive rsity of Dosage [facility] Hep B, Adol or Pedi Unknown Completed Unive rsity of Dosage [facility] Hep B, Adol or Pedi Unknown Completed Unive rsity of Dosage [facility] Haemophilus Unknown Completed [facility] influenzae type b [place] [facility] vaccine, conjugate Branch unspecified formulation Haemophilus Unknown Completed [facility] influenzae type b [place] [facility] vaccine, conjugate Branch unspecified formulation Haemophilus Unknown Completed [facility] influenzae type b [place] [facility] vaccine, conjugate Branch unspecified formulation HIB 4 Dose Schedule Unknown [facility] [place] [facility] M[facility] Completed [facility] (groups A, C, Y and Branc h W-135) conjugate vaccine (MCV4P) MMR Unknown Completed [facility] MMR Unknown Completed [facility] IPV Unknown Completed [facility] IPV Unknown Completed [facility] IPV Unknown Completed [facility] IPV Unknown Completed [facility] TDAP Unknown Completed [facility] Varicella Unknown Completed [facility] (varivax)(chicken [place] M edical pox) Branch Varicella Unknown Completed [facility] (varivax)(chicken [place] [facility] pox) Branch TDAP Unknown Completed [facility] TDAP Unknown Completed [facility] Influenza Virus Unknown Completed Universit y of Vaccine Quad .5 mL [facility] 6+ MO Branch (FLUZONE/FLULAVAL/FL UARIX) TDAP Unknown Completed [facility] HPV9 Unknown Completed [facility] DTaP, Unspecified Unknown Completed Univers ity of Formulation [facility] DTaP, Unspecified Unknown Completed Univers ity of Formulation [facility] DTaP, Unspecified Unknown Completed Univers ity of Formulation [facility] DTaP, Unspecified Unknown Completed Univers ity of Formulation [facility] DTaP, Unspecified Unknown Completed Univers ity of Formulation [facility] Hep B, Adol or Pedi Unknown Completed Unive rsity of Dosage [facility] Hep B, Adol or Pedi Unknown Completed Unive rsity of Dosage [facility] Hep B, Adol or Pedi Unknown Completed Unive rsity of Dosage [facility] Haemophilus Unknown Completed [facility] influenzae type b [place] [facility] vaccine, conjugate Branch unspecified formulation Haemophilus Unknown Completed [facility] influenzae type b [place] [facility] vaccine, conjugate Branch unspecified formulation Haemophilus Unknown Completed [facility] influenzae type b [place] [facility] vaccine, conjugate Branch unspecified formulation HIB 4 Dose Schedule Unknown [facility] [place] [facility] Meningococcal [facility] Completed [facility] (groups A, C, Y and Branc h W-135) conjugate vaccine (MCV4P) MMR Unknown Completed [facility] MMR Unknown Completed [facility] IPV Unknown Completed [facility] IPV Unknown Completed [facility] IPV Unknown Completed [facility] IPV Unknown Completed [facility] TDAP Unknown Completed [facility] Varicella Unknown Completed [facility] (varivax)(chicken [place] M edical pox) Branch Varicella Unknown Completed [facility] (varivax)(chicken [place] [facility]ical pox) Branch TDAP Unknown Completed [facility] TDAP Unknown Completed [facility] Influenza Virus Unknown Completed Universit y of Vaccine Quad .5 mL [facility] 6+ MO Branch (FLUZONE/FLULAVAL/FL UARIX) TDAP Unknown Completed [facility] HPV9 Unknown Completed [facility] DTaP, Unspecified Unknown Completed Univers ity of Formulation [facility] DTaP, Unspecified Unknown Completed Univers ity of Formulation [facility] DTaP, Unspecified Unknown Completed Univers ity of Formulation [facility] DTaP, Unspecified Unknown Completed Univers ity of Formulation [facility] DTaP, Unspecified Unknown Completed Univers ity of Formulation [facility] Hep B, Adol or Pedi Unknown Completed Unive rsity of Dosage [facility] Hep B, Adol or Pedi Unknown Completed Unive rsity of Dosage [facility] Hep B, Adol or Pedi Unknown Completed Unive rsity of Dosage [facility] Haemophilus Unknown Completed [facility] influenzae type b [place] [facility] vaccine, conjugate Branch unspecified formulation Haemophilus Unknown Completed [facility] influenzae type b [place] [facility] vaccine, conjugate Branch unspecified formulation Haemophilus Unknown Completed [facility] influenzae type b [place] [facility] vaccine, conjugate Branch unspecified formulation HIB 4 Dose Schedule Unknown [facility] [place] [facility] Meningococcal Unknown Completed [facility] viv (groups A, C, Y and Branc h W-135) conjugate vaccine (MCV4P) MMR Unknown Completed [facility] MMR Unknown Completed [facility] IPV Unknown Completed [facility] IPV Unknown Completed [facility] IPV Unknown Completed [facility] IPV Unknown Completed [facility] TDAP Unknown Completed [facility] Varicella Unknown Completed [facility] (varivax)(chicken [place] [facility] pox) Branch Varicella Unknown Completed [facility] (varivax)(chicken [place] [facility] pox) Branch TDAP Unknown Completed [facility] TDAP Unknown Completed [facility] Influenza Virus Unknown Completed Universit y of Vaccine Quad .5 mL [facility] 6+ MO Branch (FLUZONE/FLULAVAL/FL UARIX) TDAP Unknown Completed [facility] HPV9 Unknown Completed [facility] DTaP, Unspecified Unknown Completed Univers ity of Formulation [facility] DTaP, Unspecified Unknown Completed Univers ity of Formulation [facility] DTaP, Unspecified Unknown Completed Univers ity of Formulation [facility] DTaP, Unspecified Unknown Completed Univers ity of Formulation [facility] DTaP, Unspecified Unknown Completed Univers ity of Formulation [facility] Hep B, Adol or Pedi Unknown Completed Unive rsity of Dosage [facility] Hep B, Adol or Pedi Unknown Completed Unive rsity of Dosage [facility] Hep B, Adol or Pedi Unknown Completed Unive rsity of Dosage [facility] Haemophilus Unknown Completed [facility] influenzae type b [place] [facility] vaccine, conjugate Branch unspecified formulation Haemophilus Unknown Completed [facility] influenzae type b [place] [facility] vaccine, conjugate Branch unspecified formulation Haemophilus Unknown Completed [facility] influenzae type b [place] [facility] vaccine, conjugate Branch unspecified formulation HIB 4 Dose Schedule Unknown Com[facility] [place] [facility] Meningococcal Unknown Completed [facility] viv (groups A, C, Y and Branc h W-135) conjugate vaccine (MCV4P) MMR Unknown Completed [facility] MMR Unknown Completed [facility] IPV Unknown Completed [facility] IPV Unknown Completed [facility] IPV Unknown Completed [facility] IPV Unknown Completed [facility] TDAP Unknown Completed [facility] Varicella Unknown Completed [facility] (varivax[facility] [place] [facility] pox[facility] Varicella Unknown [facility] [place] [facility] p[facility] TDAP Unknown Completed [facility] TDAP Unknown Completed [facility] Influenza Virus Unknown Completed [facility] Vaccine Quad .5 mL [facility] IM 6+ MO Branch (FLUZONE/FLULAVAL/FL UARIX) TDAP Unknown Completed [facility] HPV9 [address] [facility] DTaP, Unspecified Unknown Completed [facility] Formulation [facility] DTaP, Unspecified Unknown Completed [facility] Form[facility] DTaP, Unspecified Unknown Completed [facility] Form[facility] DTaP, Unspecified Unknown Completed [facility] Form[facility] DTaP, Unspecified Unknown Completed [facility] Form[facility] Hep B, Adol or Pedi Unknown Completed Unive rsity of Dosage [facility] Hep B, Adol or Pedi Unknown Completed [facility] Dosage [facility] Hep B, Adol or Pedi Unknown Completed [facility] Dosage [facility] Haemophilus Unknown Completed [facility] influenzae type b [facility] edical vaccine, conjugate [place] unspecified formulation Haemophilus Unknown Completed [facility] influenzae type b [facility] edical vaccine, conjugate [place] unspecified formulation Haemophilus Unknown Completed [facility] influenzae type b [facility] edical vaccine, conjugate [place] unspecified formulation HIB 4 Dose Schedule Unknown [facility] Com[facility] (groups A, C, Y and Branc h W-135) conjugate vaccine (MCV4P) MMR Unknown Completed [facility] MMR Unknown Completed [facility] IPV Unknown Completed [facility] IPV Unknown Completed [facility] IPV Unknown Completed [facility] IPV Unknown Completed [facility] TDAP Unknown Completed [facility] Varicella Unknown Completed [facility] ([facility]ax[facility] [place] [facility] p[facility] Branch Varicella Unknown Completed [facility] ([facility] [place] [facility] p[facility] Branch TDAP Unknown Completed [facility] TDAP Unknown Completed [facility] Influenza Virus Unknown Completed [facility] Vaccine Quad .5 mL [facility] IM 6+ MO Branch (FLUZONE/FLULAVAL/FL UARIX) TDAP Unknown Completed [facility] HPV9 Unknown Completed [facility] DTaP, Unspecified Unknown Completed [facility] Form[facility] DTaP, Unspecified Unknown Completed [facility] Form[facility] DTaP, Unspecified Unknown Completed [facility] Form[facility] DTaP, Unspecified Unknown Completed [facility] Form[facility] DTaP, Unspecified Unknown Completed [facility] Form[facility] Hep B, Adol or Pedi Unknown Completed [facility] rs[facility] of Dosage [facility] Hep B, Adol or Pedi Unknown Completed [facility] Dosage [facility] Hep B, Adol or Pedi Unknown Completed [facility] Dosage [facility] Haemophilus Unknown Completed [facility] influenzae type b [place] [facility] vaccine, conjugate Branch unspecified formulation Haemophilus Unknown Completed [facility] influenzae type b [place] [facility] vaccine, conjugate Branch unspecified formulation Haemophilus Unknown Completed [facility] influenzae type b [place] [facility] vaccine, conjugate Branch unspecified formulation HIB 4 Dose Schedule Unknown [facility] Completed [facility] (groups A, C, Y and Branc h W-135) conjugate vaccine (MCV4P) MMR Unknown Completed [facility] MMR Unknown Completed [facility] IPV Unknown Completed [facility] IPV Unknown Completed [facility] IPV Unknown Completed [facility] IPV Unknown Completed [facility] TDAP Unknown Completed [facility] Varicella Unknown Completed [facility] (varivax[facility] [place] [facility] pox[facility] Branch Varicella Unknown Completed [facility] (varivax[facility] [place] [facility] pox) Branch TDAP Unknown Completed [facility] TDAP Unknown Completed [facility] Influenza Virus Unknown Completed [facility] Vaccine Quad .5 mL [facility] 6+ MO Branch (FLUZONE/FLULAVAL/FL UARIX) TDAP Unknown Completed [facility] HPV9 Unknown Completed [facility] DTaP, Unspecified Unknown Completed [facility] Form[facility] DTaP, Unspecified Unknown Completed [facility] Form[facility] DTaP, Unspecified Unknown Completed [facility] Form[facility] DTaP, Unspecified Unknown Completed [facility] Form[facility] DTaP, Unspecified Unknown Completed [facility] Form[facility] Hep B, Adol or Pedi Unknown Completed [facility] Dosage [facility] Hep B, Adol or Pedi Unknown Completed [facility] Dosage [facility] Hep B, Adol or Pedi Unknown Completed [facility] Dosage [facility] Haemophilus Unknown Completed [facility] influenzae type b [place] [facility] vaccine, conjugate [facility] unspecified formulation Haemophilus Unknown Completed [facility] influenzae type b [place] [facility] vaccine, conjugate Branch unspecified formulation Haemophilus Unknown Completed [facility] influenzae type b [place] [facility] vaccine, conjugate [facility] unspecified formulation HIB 4 Dose Schedule Unknown [facility] Completed [facility] (groups A, C, Y and Branc h W-135) conjugate vaccine (MCV4P) MMR Unknown Completed [facility] MMR Unknown Completed [facility] IPV Unknown Completed [facility] IPV Unknown Completed [facility] IPV Unknown Completed [facility] IPV Unknown Completed [facility] TDAP Unknown Completed [facility] Varicella Unknown Completed [facility] (varivax[facility] [place] [facility] pox[facility] Branch Varicella Unknown Completed [facility] (varivax[facility] [place] [facility] pox) Branch TDAP Unknown Completed [facility] TDAP Unknown Completed [facility] Influenza Virus Unknown Completed [facility] Vaccine Quad .5 mL [facility] 6+ MO Branch (FLUZONE/FLULAVAL/FL UARIX) TDAP Unknown Completed [facility] HPV9 Unknown Completed [facility] DTaP, Unspecified Unknown Completed [facility] DTaP, Unspecified Unknown Completed [facility] DTaP, Unspecified Unknown Completed [facility] DTaP, Unspecified Unknown Completed [facility] DTaP, Unspecified Unknown Completed [facility] Hep B, Adol or Pedi Unknown Completed [facility] Dosage [facility] Hep B, Adol or Pedi Unknown Completed [facility] Dosage [facility] Hep B, Adol or Pedi Unknown Completed [facility] Dosage [facility] Haemophilus Unknown Completed [facility] influenzae type b [place] [facility] vaccine, conjugate Branch unspecified formulation Haemophilus Unknown Completed [facility] influenzae type b [place] [facility] vaccine, conjugate Branch unspecified formulation Haemophilus Unknown Completed [facility] influenzae type b [place] [facility] vaccine, conjugate Branch unspecified formulation HIB 4 Dose Schedule Unknown [facility] Completed [facility] viv (groups A, C, Y and Branc h W-135) conjugate vaccine (MCV4P) MMR Unknown Completed [facility] MMR Unknown Completed [facility] IPV Unknown Completed [facility] IPV Unknown Completed [facility] IPV Unknown Completed [facility] IPV Unknown Completed [facility] TDAP Unknown Completed [facility] Varicella Unknown Completed [facility] (varivax[facility] [place] [facility] pox[place] Varicella Unknown Completed [facility] (varivax[facility] [place] [facility] pox) [place] TDAP Unknown Completed [facility] TDAP Unknown Completed [facility] Influenza Virus Unknown Completed [facility] Vaccine Quad .5 mL [facility] 6+ MO Branch (FLUZONE/FLULAVAL/FL UARIX) TDAP Unknown Completed [facility] HPV9 Unknown Completed [facility] DTaP, Unspecified Unknown Completed [facility] DTaP, Unspecified Unknown Completed [facility] DTaP, Unspecified Unknown Completed [facility] DTaP, Unspecified Unknown Completed [facility] DTaP, Unspecified Unknown Completed [facility] Hep B, Adol or Pedi Unknown Completed [facility] Dosage [facility] Hep B, Adol or Pedi Unknown Completed [facility] Dosage [facility] Hep B, Adol or Pedi Unknown Completed [facility] Dosage [facility] Haemophilus Unknown Completed [facility] influenzae type b [place] [facility] vaccine, conjugate Branch unspecified formulation Haemophilus Unknown Completed [facility] influenzae type b [place] [facility] vaccine, conjugate Branch unspecified formulation Haemophilus Unknown Completed [facility] influenzae type b [place] [facility] vaccine, conjugate [facility] unspecified formulation HIB 4 Dose Schedule Unknown [facility] M[facility]ococcal [facility] Completed [facility] viv (groups A, C, Y and Branc h W-135) conjugate vaccine (MCV4P) MMR Unknown Completed [facility] MMR Unknown Completed [facility] IPV Unknown Completed [facility] IPV Unknown Completed [facility] IPV Unknown Completed [facility] IPV Unknown Completed [facility] TDAP Unknown Completed [facility] Varicella Unknown Completed [facility] ([facility]ax[facility] [place] [facility] pox) [facility] Varicella Unknown Completed [facility] ([facility]ax[facility] [place] [facility] pox) Branch TDAP Unknown Completed [facility] TDAP Unknown Completed [facility] Influenza Virus Unknown Completed [facility] Vaccine Quad .5 mL [facility] IM 6+ MO Branch (FLUZONE/FLULAVAL/FL UARIX) TDAP Unknown Completed [facility] HPV9 Unknown Completed [facility] DTaP, Unspecified Unknown Completed [facility] Form[facility] DTaP, Unspecified Unknown Completed [facility] DTaP, Unspecified Unknown Completed [facility] DTaP, Unspecified Unknown Completed [facility] DTaP, Unspecified Unknown Completed [facility] Hep B, Adol or Pedi Unknown Completed [facility] rs[facility] of Dosage [facility] Hep B, Adol or Pedi Unknown Completed [facility] Dosage [facility] Hep B, Adol or Pedi Unknown Completed [facility] Dosage [facility] Haemophilus Unknown Completed [facility] influenzae type b [facility] edical vaccine, conjugate [place] unspecified formulation Haemophilus Unknown Completed [facility] influenzae type b [place] [facility] vaccine, conjugate [place] unspecified formulation Haemophilus Unknown Completed [facility] influenzae type b [facility] edical vaccine, conjugate Branch unspecified formulation HIB 4 Dose Schedule Unknown [facility] M[facility]ococcal [facility] Completed [facility] (groups A, C, Y and Branc h W-135) conjugate vaccine (MCV4P) MMR Unknown Completed [facility] MMR Unknown Completed [facility] IPV Unknown Completed [facility] IPV Unknown Completed [facility] IPV Unknown Completed [facility] IPV Unknown Completed [facility] TDAP Unknown Completed [facility] Varicella Unknown Completed [facility] (varivax[facility] [place] [facility] pox) Branch Varicella Unknown Completed [facility] ([facility]ax[facility] [place] [facility] pox) Branch TDAP Unknown Completed [facility] TDAP Unknown Completed [facility] Influenza Virus Unknown Completed [facility] Quad .[facility] 6[facility] MO [facility] (FLUZONE/FLULAVAL/FL UARIX) TDAP Unknown Completed [facility] HPV9 Unknown Completed [facility] DTaP, Unspecified Unknown Completed [facility] Form[facility] DTaP, Unspecified Unknown Completed [facility] Form[facility] DTaP, Unspecified Unknown Completed [facility] DTaP, Unspecified Unknown Completed [facility] DTaP, Unspecified Unknown Completed [facility] Form[facility] Hep B, Adol or Pedi Unknown Completed [facility] Dosage [facility] Hep B, Adol or Pedi Unknown Completed [facility] Dosage [facility] Hep B, Adol or Pedi Unknown Completed [facility] Dosage [facility] Haemophilus Unknown Completed [facility] influenzae type b [place] [facility] vaccine, conjugate Branch unspecified formulation Haemophilus Unknown Completed [facility] influenzae type b [place] [facility] vaccine, conjugate Branch unspecified formulation Haemophilus Unknown Completed [facility] influenzae type b [place] [facility] vaccine, conjugate Branch unspecified formulation HIB 4 Dose Schedule Unknown [facility] M[facility]ococcal [facility] Completed [facility] (groups A, C, Y and Branc h W-135) conjugate vaccine (MCV4P) MMR Unknown Completed [facility] MMR Unknown Completed [facility] IPV Unknown Completed [facility] IPV Unknown Completed [facility] IPV Unknown Completed [facility] IPV Unknown Completed [facility] TDAP Unknown Completed [facility] Varicella Unknown Completed [facility] (varivax[facility] [place] [facility] pox) Branch Varicella Unknown Completed [facility] (varivax)([facility]icken [place] [facility] pox) [place] TDAP Unknown Completed [facility] TDAP Unknown Completed [facility] Influenza Virus Unknown Completed [facility] Vaccine Quad .5 mL [facility] IM 6+ MO Branch (FLUZONE/FLULAVAL/FL UARIX) TDAP Unknown Completed [facility] HPV9 Unknown Completed [facility] DTaP, Unspecified Unknown Completed [facility] DTaP, Unspecified Unknown Completed [facility] DTaP, Unspecified Unknown Completed [facility] DTaP, Unspecified Unknown Completed [facility] Form[facility] DTaP, Unspecified Unknown Completed [facility] Form[facility] Hep B, Adol or Pedi Unknown Completed [facility] Dosage [facility] Hep B, Adol or Pedi Unknown Completed [facility] Dosage [facility] Hep B, Adol or Pedi Unknown Completed [facility] Dosage [facility] Haemophilus Unknown Completed [facility] influenzae type b [place] [facility] vaccine, conjugate Branch unspecified formulation Haemophilus Unknown Completed [facility] influenzae type b [place] [facility] vaccine, conjugate Branch unspecified formulation Haemophilus Unknown Completed [facility] influenzae type b [place] [facility] vaccine, conjugate Branch unspecified formulation HIB 4 Dose Schedule Unknown [facility] M[facility]ococcal [facility] Completed [facility] (groups A, C, Y and Branc h W-135) conjugate vaccine (MCV4P) MMR Unknown Completed [facility] MMR Unknown Completed [facility] IPV Unknown Completed [facility] IPV Unknown Completed [facility] IPV Unknown Completed [facility] IPV Unknown Completed [facility] TDAP Unknown Completed [facility] Varicella Unknown Completed [facility] (varivax[facility] [place] [facility] pox) Branch Varicella Unknown Completed [facility] (varivax)(chicken [place] [facility] pox) Branch TDAP Unknown Completed [facility] TDAP Unknown Completed [facility] Influenza Virus Unknown Completed [facility] Vaccine Quad .5 mL [facility] 6+ MO Branch (FLUZONE/FLULAVAL/FL UARIX) TDAP Unknown Completed [facility] HPV9 Unknown Completed [facility] DTaP, Unspecified Unknown Completed [facility] Form[facility] DTaP, Unspecified Unknown Completed [facility] Form[facility] DTaP, Unspecified Unknown Completed [facility] Form[facility] DTaP, Unspecified Unknown Completed [facility] Form[facility] DTaP, Unspecified Unknown Completed [facility] Form[facility] Hep B, Adol or Pedi Unknown Completed [facility] Dosage [facility] Hep B, Adol or Pedi Unknown Completed [facility] Dosage [facility] Hep B, Adol or Pedi Unknown Completed [facility] Dosage [facility] Haemophilus Unknown Completed [facility] influenzae type b [place] [facility] vaccine, conjugate Branch unspecified formulation Haemophilus Unknown Completed [facility] influenzae type b [place] [facility] vaccine, conjugate Branch unspecified formulation Haemophilus Unknown Completed [facility] influenzae type b [place] [facility] vaccine, conjugate Branch unspecified formulation HIB 4 Dose Schedule Unknown [facility] M[facility]ococcal [facility] Completed [facility] (groups A, C, Y and Branc h W-135) conjugate vaccine (MCV4P) MMR Unknown Completed [facility] MMR Unknown Completed [facility] IPV Unknown Completed [facility] IPV Unknown Completed [facility] IPV Unknown Completed [facility] IPV Unknown Completed [facility] TDAP Unknown Completed [facility] Varicella Unknown Completed [facility] (varivax)([facility] [place] [facility] pox) Branch Varicella Unknown Completed [facility] (varivax)([facility]icken [place] [facility] pox) Branch TDAP Unknown Completed [facility] TDAP Unknown Completed [facility] Influenza Virus Unknown Completed [facility] Vaccine Quad .5 mL [facility] 6+ MO Branch (FLUZONE/FLULAVAL/FL UARIX) TDAP Unknown Completed [facility] HPV9 Unknown Completed [facility] DTaP, Unspecified Unknown Completed [facility] Form[facility] DTaP, Unspecified Unknown Completed [facility] Form[facility] DTaP, Unspecified Unknown Completed [facility] Form[facility] DTaP, Unspecified Unknown Completed [facility] Form[facility] DTaP, Unspecified Unknown Completed [facility] Form[facility] Hep B, Adol or Pedi Unknown Completed [facility] Dosage [facility] Hep B, Adol or Pedi Unknown Completed [facility] Dosage [facility] Hep B, Adol or Pedi Unknown Completed [facility] Dosage [facility] Haemophilus Unknown Completed [facility] influenzae type b [place] [facility] vaccine, conjugate Branch unspecified formulation Haemophilus Unknown Completed [facility] influenzae type b [place] [facility] vaccine, conjugate Branch unspecified formulation Haemophilus Unknown Completed [facility] influenzae type b [place] [facility] vaccine, conjugate Branch unspecified formulation HIB 4 Dose Schedule Unknown [facility] M[facility]ococcal [facility] Completed [facility] (groups A, C, Y and Branc h W-135) conjugate vaccine (MCV4P) MMR Unknown Completed [facility] MMR Unknown Completed [facility] IPV Unknown Completed [facility] IPV Unknown Completed [facility] IPV Unknown Completed [facility] IPV Unknown Completed [facility] TDAP Unknown Completed [facility] Varicella Unknown Completed [facility] (varivax)([facility]icken [place] [facility] pox) Branch Varicella Unknown Completed [facility] (varivax)(chicken [place] [facility] pox) Branch TDAP Unknown Completed [facility] TDAP Unknown Completed [facility] Influenza Virus Unknown Completed [facility] Vaccine Quad .5 mL [facility] 6+ MO Branch (FLUZONE/FLULAVAL/FL UARIX) TDAP Unknown Completed [facility] HPV9 Unknown Completed [facility] DTaP, Unspecified Unknown Completed [facility] Form[facility] DTaP, Unspecified Unknown Completed [facility] Form[facility] DTaP, Unspecified Unknown Completed [facility] Form[facility] DTaP, Unspecified Unknown Completed [facility] Form[facility] DTaP, Unspecified Unknown Completed [facility] Formulation [facility] Hep B, Adol or Pedi Unknown Completed [facility] Dosage [facility] Hep B, Adol or Pedi Unknown Completed [facility] Dosage [facility] Hep B, Adol or Pedi Unknown Completed [facility] Dosage [facility] Haemophilus Unknown Completed [facility] influenzae type b [facility] edical vaccine, conjugate [place] unspecified formulation Haemophilus Unknown Completed [facility] influenzae type b [place] [facility] vaccine, conjugate [place] unspecified formulation Haemophilus Unknown Completed [facility] influenzae type b [facility] edical vaccine, conjugate [place] unspecified formulation HIB 4 Dose Schedule Unknown Completed [facility] Meningococcal Unknown Completed [facility] (groups A, C, Y and Branc h W-135) conjugate vaccine (MCV4P) MMR Unknown Completed [facility] MMR Unknown Completed [facility] IPV Unknown Completed [facility] IPV Unknown Completed [facility] IPV Unknown Completed [facility] IPV Unknown Completed [facility] TDAP Unknown Completed [facility] Varicella Unknown Completed [facility] (varivax)(chicken [place] [facility] pox) Branch Varicella Unknown Completed [facility] (varivax)(chicken [place] [facility] pox) Branch TDAP Unknown Completed [facility] TDAP Unknown Completed [facility] Influenza Virus Unknown Completed Universit y of Vaccine Quad .5 mL [facility] 6+ MO Branch (FLUZONE/FLULAVAL/FL UARIX) TDAP Unknown Completed [facility] HPV9 [address]pleted [facility] DTaP, Unspecified Unknown Completed Univers [facility] DTaP, Unspecified Unknown Completed [facility] DTaP, Unspecified Unknown Completed [facility] DTaP, Unspecified Unknown Completed [facility] Vital Signs Vital Name Observation Time Observation Value Comments Source Systolic blood 2022-12-10 16:02:00 133 mm[Hg] Univer sity of [facility] Diastolic blood 2022-12-10 16:02:00 84 mm[Hg] Unive rsity of [facility] Heart rate 2022-12-10 16:02:00 118 /min Universi ty [facility] Body temperature 2022-12-10 16:02:00 36.56 [place] [facility] Respiratory rate 2022-12-10 16:02:00 22 /min Univ ersity [facility] Body height 2022-12-10 16:02:00 162.6 cm [facility] ty [facility] Body weight 2022-12-10 16:02:00 145.151 kg [facility] BMI 2022-12-10 16:02:00 54.93 kg/m2 Universi ty [facility] Systolic blood 2022-11-12 19:30:00 133 mm[Hg] Univer sity of [facility] Diastolic blood 2022-11-12 19:30:00 86 mm[Hg] Unive rsity of [facility] Heart rate 2022-11-12 19:30:00 83 /min [facility]i ty [facility] Body temperature 2022-11-12 19:30:00 36.28 [place] Univ ersity [facility] Respiratory rate 2022-11-12 19:30:00 20 /min Univ ersity [facility] Body height 2022-11-12 19:30:00 162.6 cm [facility] ty [facility] Body weight 2022-11-12 19:30:00 141.522 kg [facility] BMI 2022-11-12 19:30:00 53.55 kg/m2 [facility]i ty [facility] Systolic blood 2022-10-06 20:25:00 127 mm[Hg] Univer sity of [facility] Diastolic blood 2022-10-06 20:25:00 67 mm[Hg] Unive rsity of [facility] Heart rate 2022-10-06 20:25:00 99 /min [facility]i [facility] Body temperature 2022-10-06 20:25:00 36.33 [place] Univ ersity [facility] Respiratory rate 2022-10-06 20:25:00 20 /min Univ ersity [facility] Body height 2022-10-06 20:25:00 162.6 cm [facility]i ty [facility] Body weight 2022-10-06 20:25:00 144.924 kg [facility] BMI 2022-10-06 20:25:00 54.84 kg/m2 [facility] Systolic blood 2022-09-26 20:00:00 130 mm[Hg] Univer sity of [facility] Diastolic blood 2022-09-26 20:00:00 87 mm[Hg] Unive rsity of [facility] Heart rate 2022-09-26 20:00:00 98 /min [facility] Body temperature 2022-09-26 20:00:00 35.94 [place] Univ ers[facility] Respiratory rate 2022-09-26 20:00:00 18 /min Univ ersity [facility] Body height 2022-09-26 20:00:00 162.6 cm [facility] Body weight 2022-09-26 20:00:00 142.429 kg [facility] BMI 2022-09-26 20:00:00 53.90 kg/m2 [facility] Body height 2019-05-31 20:21:00 162.6 cm [facility] Body weight 2019-05-31 20:21:00 114.023 kg [facility] BMI 2019-05-31 20:21:00 43.15 kg/m2 [facility] Systolic blood 2019-05-31 20:21:00 116 mm[Hg] Univer sity of [facility] Diastolic blood 2019-05-31 20:21:00 79 mm[Hg] Unive rsity of [facility] Heart rate 2019-05-31 20:21:00 92 /min [facility] Body temperature 2019-05-31 20:21:00 36.17 [place] [facility] Respiratory rate 2019-05-31 20:21:00 16 /min [facility] Systolic blood 2019-05-12 18:59:00 114 mm[Hg] Univer sity of [facility] Diastolic blood 2019-05-12 18:59:00 72 mm[Hg] Unive rsity of [facility] Heart rate 2019-05-12 18:59:00 73 /min [facility] Body temperature 2019-05-12 18:59:00 36.5 [place] [facility] Respiratory rate 2019-05-12 18:59:00 16 /min [facility] Body height 2019-05-12 18:59:00 160 cm [facility] Body weight 2019-05-12 18:59:00 113.172 kg [facility] BMI 2019-05-12 18:59:00 44.20 kg/m2 [facility] Procedures Procedure Date / Time Performed Performing Clinician Sourc e POCT URINALYSIS W/O 2022-12-10 16:49:00 Santa Goldman [facility] SPECIFIC [facility] FIRST TRIMESTER 2022-12-02 18:35:00 Santa Goldman [facility] Medical [place] FIRST TRIMESTER 2022-11-18 15:34:00 [facility] POST 2022-11-12 20:29:00 [facility] TOTAL BETA HCG ASSAY 2022-11-12 20:29:00 Santa Goldman [facility] CBC WITH DIFF 2022-11-12 20:29:00 [facility] RUBELLA SCREEN IGG 2022-11-12 20:29:00 Santa Goldman [facility] VZV ANTIBODY SCREEN 2022-11-12 20:29:00 Jones [facility] HEPATITIS B SURFACE 2022-11-12 20:29:00 Jones [facility] ANTIGEN Medical Branch HCV ANTIBODY 2022-11-12 20:29:00 Jones [facility] HB ABO GROUPING 2022-11-12 20:29:00 Jones [facility] HIV 1/2 AG-AB WITH 2022-11-12 20:29:00 Jones [facility] REFLEX [facility] Branch SYPHILIS IGG/IGM 2022-11-12 20:29:00 Jones [facility] POCT TEST 2022-11-12 19:34:00 Jones [facility] POCT URINALYSIS W/O 2022-11-12 19:34:00 Jones [facility] SPECIFIC GRAVITY Medical Branch REPORT OF 2022-11-12 05:01:00 Doctor Unassigned, No [facility] Medical Branch DISCLOSURE AND 2022-10-07 05:01:00 Doctor Unassigned, No Univer [facility] CONSENT, MEDICAL AND Name Medical [facility] SURGICAL PROCEDURES CONSENT/REFUSAL FOR 2022-09-26 19:17:41 Doctor Unassigned, No Un iversity [facility] DIAGNOSIS AND [facility] Medical Branch TREATMENT POCT TEST 2019-05-31 20:23:00 Millie Araiza Uni [facility] DISCLOSURE AND 2019-05-31 05:01:00 Doctor Unassigned, No [facility], MEDICAL AND Name Medical [facility] SURGICAL PROCEDURES POCT TEST 2019-05-12 20:20:00 Millie Araiza Uni [facility] [id number] CONSENT 2019-05-12 05:01:00 Doctor Unassigned, No Unive rsity of [facility] Medical Branch Encounters Start End Encounter Admission Attending Care Care Encounter Source Date/Time Date/Time Type Type Clinicians Facility Department ID 2022-12-18 2022-12-18 Telephone Jones [facility] [id number] Univers 00:00:00 00:00:00 Santa [employer] 350.1.13.10 it y of REGIONAL 4.2.7.2.686 Timo as MATERNAL [phone] Med ical & CHILD 358 [facility] 2022-12-17 2022-12-17 Outpatient R ESSENCE [facility] [id number] Univers 10:30:00 10:55:39 TONY salvador [facility] 2022-12-10 2022-12-10 Outpatient R JONES SANTA [facility] [id number] Univers 10:45:00 11:42:28 SANTA GOLDMAN juan r [facility] 2022-12-10 2022-12-10 Routine [facility] [id number] Univers 10:45:00 11:42:28 Santa ST[employer]ED [employer] 350.1.13.10 i ty of Visit REGIONAL 4.2.7.2.686 Timo as MATERNAL [phone] [facility] ical & CHILD [address] [place] [address] 2022-12-08 2022-12-08 Telephone [facility] [id number] Univers 00:00:00 00:00:00 Santa [employer]ED [employer] 350.1.13.10 it y of REGIONAL 4.2.7.2.686 Timo as MATERNAL [phone] Med ical & CHILD 107 [facility] 2022-12-04 2022-12-04 [facility] 1.2.840.114 [id number] Univers 00:00:00 00:00:00 Santa ST[employer]ED [employer] 350.1.13.10 it y of REGIONAL 4.2.7.2.686 Timo as MATERNAL [phone] [facility] ical & CHILD [address] [place] [address] 2022-12-02 2022-12-02 Outpatient P TAMMY [facility] [id number] Univers 13:00:00 13:32:41 JULIA it y of CARRI Suero [facility] 2022-12-02 2022-12-02 Migratory Worker Ultrasound[facility] 1.2 .840.114 [id number] Univers 13:00:00 13:32:41 Visit Carri Infante [employer] 350.1. 13.10 ity of REGIONAL 4.2.7.2.686 Timo as MATERNAL [phone] Med ical & CHILD 369 [facility] 2022-11-27 2022-11-27 Outpatient R JOSE G [facility] [id number] Univers 10:30:00 11:04:17 MILLIE pete o f [facility] 2022-11-27 2022-11-27 Migratory Worker Lab, [facility] 1.2.840. 114 [id number] Univers 10:30:00 10:45:00 Visit Millie Araiza [employer] 350.1.13. 10 ity of REGIONAL 4.2.7.2.686 Timo as MATERNAL [phone] Med ical & CHILD 107 [facility] 2022-11-21 2022-11-21 Abstract [facility] 1.2.840.114 [id number] Univers 00:00:00 00:00:00 Santa STAINED [employer] 350.1.13.10 it y of REGIONAL 4.2.7.2.686 Timo as MATERNAL [phone] [facility] ical & CHILD 358 [facility] 2022-11-20 2022-11-20 Telephone [facility] [id number] Univers 00:00:00 00:00:00 Santa ST[employer]ED [employer] 350.1.13.10 it y of REGIONAL 4.2.7.2.686 Timo as MATERNAL [phone] [facility] ical & CHILD [address] [place] [address] 2022-11-18 2022-11-18 Outpatient R TAMMY [facility] [id number] Univers 10:30:00 10:33:12 JULIA it y of S CHRISTINA [facility] 2022-11-18 2022-11-18 Migratory Worker Lab, [facility] 1.2.840. 114 [id number] Univers 10:30:00 10:33:12 Visit Carri Infante ST[employer]ED [employer] 350.1. 13.10 ity of REGIONAL 4.2.7.2.686 Timo as MATERNAL [phone] [facility] ical & CHILD 358 [facility] 2022-11-18 2022-11-18 Migratory Worker Ultrasound, [facility] 1.2 .840.114 [id number] Univers 10:00:00 10:31:04 Visit Hayes Koahmet Christina STAINED [employer] 350.1. 13.10 ity of REGIONAL 4.2.7.2.686 Timo as MATERNAL [phone] [facility] & CHILD [address] [place] [address] 2022-11-17 2022-11-17 Migratory Worker Lab, [facility] 1.2.840. 114 [id number] Univers 10:30:00 10:45:00 Visit Millie Araiza [employer]ED [employer] DES[employer] 350.1.13. 10 ity of REGIONAL 4.2.7.2.686 Timo as MATERNAL [id number] [facility] & CHILD [address] [place] [address] 2022-11-17 2022-11-17 Outpatient R JOSE G [facility] [id number] Univers 10:30:00 10:30:00 MILLIE pete o f [facility] 2022-11-14 2022-11-14 Outpatient R RANDALL [facility] [id number] Univers 10:00:00 10:10:22 IVONE HOWARD [facility] 2022-11-14 2022-11-14 Migratory Worker Lab, [facility] 1.2.840. 114 [id number] [facility] 10:00:00 10:10:22 Visit Ivone Menendez ST[employer]ED [employer] 350.1.1 3.10 ity of [facility] 4.2.7.2.686 Timo as MATERNAL [phone] [facility] & CHILD [address] [place] [address] 2022-11-12 2022-11-12 Outpatient R SANTA GOLDMAN [facility] [id number] Univers 14:15:00 15:48:04 SANTA GOLDMAN [facility] 2022-11-12 2022-11-12 Initial Santa Goldman [facility] 1.2.840.114 [id number] Univers 14:15:00 15:48:04 FojtJudi STAINED [employer]ER 350.1.13.10 ity of Visit REGIONAL 4.2.7.2.686 Timo as MATERNAL [phone] Med ical & CHILD 358 [facility] 2022-11-12 2022-11-12 Orders Doctor LAUREN 1.2.840.114 [id number] Univers 00:00:00 00:00:00 Only Unassigned, MARINA 350.1.13.10 ity of [facility] 4.2.7.2.686 Timo as [phone] [address] 2022-10-07 2022-10-07 Orders Doctor LAUREN 1.2.840.114 [id number] Univers 00:00:00 00:00:00 Only Unassigned, MARINA 350.1.13.10 ity of [facility] 4.2.7.2.686 Timo as [phone] [address] 2022-10-06 2022-10-06 Office Provider, Lucho Garces [facility] 1 .2.840.114 [id number] Univers 15:15:00 15:45:00 Visit Judi Rodriguez STAINED [employer] 350.1.13.10 ity of [facility] 4.2.7.2.686 Timo as MATERNAL [phone] [facility] ical & CHILD 107 [facility] 2022-10-06 2022-10-06 Outpatient R JUDI RODRIGUEZ [facility] [id number] Univers 15:15:00 15:15:00 ity of [facility] 2022-09-29 2022-09-29 [facility]phone [facility] 1.2.840.114 [id number] Univers 00:00:00 00:00:00 Millie Rodriguez STAINED [employer] DESIGNER 350.1.13.10 ity of [facility] 4.2.7.2.686 Timo as MATERNAL [id number] [facility] ical & CHILD 107 [facility] 2022-09-26 2022-09-26 Outpatient R JOSE G [facility] [id number] Univers 14:30:00 15:47:28 MILLIE mckenzie [facility] 2022-09-26 2022-09-26 Office [facility] [id number] Univers 14:30:00 15:47:28 Visit Millie C [employer]AINED [employer] 350.1.13.10 ity of [facility] 4.2.7.2.686 Timo as MATERNAL [phone] [facility] & CHILD [address] [place] [address] 2022-09-26 2022-09-26 Orders Doctor LAUREN 1.2.840.114 [id number] Univers 00:00:00 00:00:00 Only Unassigned, MARINA 350.1.13.10 ity of [place] [facility] 4.2.7.2.686 Timo as [phone] [address] 2020-05-15 2020-05-15 Patient Tao [facility] 1.2.840.114 [id number] Univers 00:00:00 00:00:00 Outreach Ken [facility] 350.1.13.10 i ty of [facility] 4.2.7.2.686 [place] [phone] [address] 2019-07-13 2019-07-13 Outpatient R JOSE G [facility] [id number] Univers 13:15:00 13:15:00 MILLIE ity o f [facility] 2019-07-13 2019-07-13 [facility] 1.2.840.114 [id number] Univers 12:49:17 13:04:17 ne Visit Millie C STAINED [employer]ER 350.1.13.10 ity of [facility] 4.2.7.2.686 Timo as MATERNAL [phone] [facility] & CHILD [address] [place] [address] 2019-06-01 2019-06-01 Outpatient R JOSE G, [facility] [id number] Univers 13:30:00 13:30:00 MILLIE ity o f [facility] 2019-05-31 2019-05-31 Office Jose [facility] [id number] [id number] Univers 15:06:58 16:01:07 Visit Millie C STAINED [employer] 350.1.13.10 ity of [facility] 4.2.7.2.686 Timo as MATERNAL [phone] [facility] & CHILD [address] [place] [address] 2019-05-31 2019-05-31 [facility] [id number] Univers 15:00:00 15:00:00 MILLIE pete o f [facility] 2019-05-31 2019-05-31 Orders Doctor LAUREN 1.2.840.114 [id number] Univers 00:00:00 00:00:00 Only Unassigned, MARINA 350.1.13.10 ity of [place] [facility] 4.2.7.2.686 Timo as [phone] [address] 2019-05-27 2019-05-27 Outpatient R JOSE G [facility] [id number] Univers 08:30:00 08:30:00 MILLIE mckenzie [facility] 2019-05-27 2019-05-27 Telephone Jose [facility] 1.2.840.114 [id number] Univers 00:00:00 00:00:00 Millie Rodriguez STAINED [employer] DES[employer]ER 350.1.13.10 ity of [facility] 4.2.7.2.686 Timo as MATERNAL [phone] [facility] ical & CHILD [address] [place] [address] 2019-05-26 2019-05-26 Telemedici [facility] 1.2.840.114 [id number] Univers 13:33:45 15:49:33 ne Visit Millie Rodriguez STAINED [employer] DESIGNER 350.1.13.10 ity of [facility] 4.2.7.2.686 Timo as MATERNAL [phone] [facility] & CHILD [address] [place] [address] 2019-05-26 2019-05-26 Outpatient R JOSE G [facility] [id number] Univers 15:00:00 15:00:00 MILLIE pete o magaly [facility] 2019-05-12 2019-05-12 Office [facility] [id number] Univers 13:39:49 14:37:53 Visit Millie Rodriguez STAINED [employer] DESIGNER 350.1.13.10 ity of [facility] 4.2.7.2.686 Timo as MATERNAL [phone] [facility] & CHILD [address] [place] [address] 2019-05-12 2019-05-12 Outpatient R [facility] [id number] Univers 09:30:00 09:30:00 MILLIE mckenzie [facility] 2019-05-12 2019-05-12 Orders Doctor LAUREN 1.2.840.114 [id number] Univers 00:00:00 00:00:00 Only Unassigned, MARINA 350.1.13.10 ity of [place] [facility] 4.2.7.2.686 Timo as [phone] [address] 2018-07-29 2018-07-29 Outpatient Genaro [facility] [id number] [facility] 09:30:00 10:20:16 RICHARD pete [facility] Results Test Description Test Time Test Comments Results Result Comments Source POCT URINALYSIS W/O SPECIFIC GRAVITY 2022-12-10 16:49:00 Test Item Value Reference Range Interpretation Comme nts POCT PH U (test code = 3254) 5 mg/dl 5-8 POCT U LEUK EST (test code = 3263) Trace Negative - Negative POCT U NIT (test code = 3262) Negative Negative - Negative POCT U PROT (test code = 3259) Trace Negative - Negative POCT U GLU (test code = 3256) Negative Negative - Negative POCT U KETONE (test code = 3258) Negative Negative - Negative POCT U BLD (test code = 3257) 250 Negative - Negative [facility] SPECIFIC [id number] 16:49:00 Test Item Value Reference Range Interpretation Comments POCT PH U (test code = 3254) 5 mg/dl 5-8 POCT U LEUK EST (test code = Trace Negative - Negative 3263) POCT U NIT (test code = 3262) Negative Negative - Negative POCT U PROT (test code = 3259) Trace Negative - Negative POCT U GLU (test code = 3256) Negative Negative - Negative POCT U KETONE (test code = 3258) Negative Negative - Negative POCT U BLD (test code = 3257) 250 Negative - Negative [facility]/O SPECIFIC [id number] 19:34:00 Test Item Value Reference Range Interpretation Comments POCT PH U (test code = 3254) 5 mg/dl 5-8 POCT U LEUK EST (test code = ++ Negative - Negative 3263) POCT U NIT (test code = 3262) Negative Negative - Negative POCT U PROT (test code = 3259) Trace Negative - Negative POCT U GLU (test code = 3256) Negative Negative - Negative POCT U KETONE (test code = 3258) Negative Negative - Negative POCT U BLD (test code = 3257) Negative Negative - Negative [facility] [id number] 19:34:00 Test Item Value Reference Range Interpretation Comments POCT PREG (test code = 1605) Positive On board controls acceptable with C Yes Line (test code = 3574) POCT PREG LOT # (test code = 3575) POCT PREG TEST DATE (test code = 3576) [facility] [id number] 20:23:00 Test Item Value Reference Range Interpretation Comments POCT PREG (test code = 1605) Negative On board controls acceptable with C Yes Line (test code = 3574) POCT PREG LOT # (test code = 3575) POCT PREG TEST DATE (test code = 3576) [facility] [id number] 20:23:00 Test Item Value Reference Range Interpretation Comments POCT PREG (test code = 1605) Negative On board controls acceptable with C Yes Line (test code = 3574) POCT PREG LOT # (test code = 3575) POCT PREG TEST DATE (test code = 3576) [facility] [id number] 20:20:00 Test Item Value Reference Range Interpretation Comments POCT PREG (test code = 1605) Negative On board controls acceptable with C Yes Line (test code = 3574) POCT PREG LOT # (test code = 3575) POCT PREG TEST DATE (test code = 3576) [facility] [id number] 20:20:00 Test Item Value Reference Range Interpretation Comments POCT PREG (test code = 1605) Negative On board controls acceptable with C Yes Line (test code = 3574) POCT PREG LOT # (test code = 3575) POCT PREG TEST DATE (test code = 3576) [facility]
[2022-12-27 18:27] LABS: Urine Bacteria 20-50 /HPF (<20); Urine Bilirubin NEGATIVE (Negative); Urine Blood 2+ (Negative); Urine Clarity Extremely Turbid (Clear); Urine Color Yellow (Yellow); Urine Glucose NEGATIVE (Negative); Urine Mucus 2+ /HPF (None Seen); Urine Protein TRACE (Negative); Urine RBC <5 /HPF (None Seen); Urine Urobilinogen Normal (Normal); Urine pH 5.5 (5.0-7.0)
--- NOTE | 2022-12-27 18:45 | RAD REPORT ---
EXAM DESCRIPTION: US - 1St Trimester Twins - 12/27/2022 6:30 pm CLINICAL HISTORY: Vaginal bleeding;Abd cramping, COMPARISON: No comparisons FINDINGS: Single IUP identified. Positive heart tones. A small subchronic hemorrhage is presen t measuring less than 25% of the surface area of the gestational sac. The crown-rump length measures 3.6 cm which is consistent with 10 week 4 day and JUAN DANIEL of 07/21/2023. F etal heart rate measured at 159 beats/minute. Neither ovary imaged. IMPRESSION: Single IUP with positive heart tones measuring 10 week 4 day with JUAN DANIEL of . Small subchorionic hemorrhage.
[2022-12-27 18:48] LABS: Absolute Lymphocytes (CBC) 1.9 K/uL (0.7-4.9); Hematocrit 38.1 % (36.0-45.0); Lymphocytes % 17.9 % (15.3-44.8); MCV 80.5 fL (80-100); MPV 7.3 fL (7.6-11.3); Platelets 293 thou/uL (152-406); RBC Red Blood Cell Count 4.73 M/uL (3.86-4.86)
[2022-12-27 19:11] LABS: Potassium 3.5 mEq/L (3.5-5.1)
--- NOTE | 2022-12-27 19:24 | ER ---
Nurse's Notes [facility] Name: Angelina Woodard Age: 27 yrs Sex: Female : 1995 Arrival Date: 12/27/2022 Time: 17:25 Bed 18 Private MD: Diagnosis: Subchorionic hemorrhage Presentation: 12/27 17:35 Chief complaint: Patient states: 10 WKS WITH TWINS STARTED HAVING VAG BLEEDING db 1 HOUR AGO. LOWER ABD PAIN WITH CRAMPING STARTED TODAY. ON ANTIBIOTICS FOR UTI. Coronavirus screen: Client denies travel out of the [place] in the last 14 days. At this time, the client does not indicate any symptoms associated with coronavirus-19. Ebola Screen: Patient negative for fever greater than or equal to 101.5 degrees Fahrenheit, and additional compatible Ebola Virus Disease symptoms Patient denies exposure to infectious person. Patient denies travel to an Ebola-affected area in the 21 days before illness onset. No symptoms or risks identified at this time. Initial Sepsis Screen: Does the patient meet any 2 criteria? Systolic BP < 90 mmHg. No. Patient's initial sepsis screen is negative. Does the patient have a suspected source of infection? No. Patient's initial sepsis screen is negative. Risk Assessment: Do you want to hurt yourself or someone else? Patient reports no desire to harm self or others. Onset of symptoms was December 27, 2022. 17:35 Method Of Arrival: Ambulatory db 17:35 Acuity: EDIN 3 db Triage Assessment: 17:45 General: Appears in no apparent distress. uncomfortable, Behavior is cooperative. Pain: db Complains of pain in abdomen. Neuro: Level of Consciousness is awake, alert, obeys commands, Oriented to person, place, time, situation. GI: Reports lower abdominal pain. CERTIFIED MEDICAL ASSISTANT: 17:45 3, Premature 2, 0, Living 2, unknown db 17:45 3, Full Term 2, unknown jh7 Historical: - Allergies: 17:45 Amoxicillin; db - Immunization history:: Adult Immunizations unknown. - Social history:: Smoking status: Patient denies any tobacco usage or history of. Screenin:35 [facility] ED Fall Risk Assessment (Adult) History of falling in the last 3 months, db including since admission No falls in past 3 months (0 pts) Confusion or Disorientation No (0 pts) Intoxicated or Sedated No (0 pts) Impaired Gait No (0 pts) Mobility Assist Device Used No (0 pt) Altered Elimination No (0 pt) Score/Fall Risk Level 0 - 2 = Low Risk Oriented to surroundings, Maintained a safe environment. Abuse screen: Denies threats or abuse. Denies injuries from another. Nutritional screening: No deficits noted. Tuberculosis screening: No symptoms or risk factors identified. Assessment: 17:47 Reassessment: Patient appears in no apparent distress at this time. Patient and/or db family updated on plan of care and expected duration. Pain level reassessed. Patient is alert, oriented x 3, equal unlabored respirations, skin warm/dry/pink. General: Appears in no apparent distress. comfortable, Behavior is calm, cooperative. Neuro: Level of Consciousness is awake, alert, obeys commands, Oriented to person, place, time, situation. 17:47 Reassessment: PATIENT AMBULATORY TO RESTROOM. db 18:15 Reassessment: Patient appears in no apparent distress at this time. Patient and/or db family updated on plan of care and expected duration. Pain level reassessed. Patient is alert, oriented x 3, equal unlabored respirations, skin warm/dry/pink. ULTRASOUND AT BEDSIDE. 18:38 Reassessment: Patient appears in no apparent distress at this time. Patient and/or db family updated on plan of care and expected duration. Pain level reassessed. Patient is alert, oriented x 3, equal unlabored respirations, skin warm/dry/pink. SPOUSE AT BEDSIDE. 19:33 GI: Bowel sounds present X 4 quads. Abd is soft and non tender X 4 quads. rv Vital Signs: 17:35 BP 134 / 103; Pulse 116; Resp 18; Temp 98.2(O); Pulse Ox 100% on R/A; Weight 122.47 kg; db Height 5 ft. 4 in. ; 18:30 BP 121 / 73; Pulse 103; Resp 18; Pulse Ox 99% on R/A; db 18:35 BP 119 / 46; Pulse 104; Resp 18; Pulse Ox 96% on R/A; db 17:35 Body Mass Index 46.34 (122.47 kg, 162.56 cm) db [place] Coma Score: 19:33 Eye Response: spontaneous(4). Motor Response: obeys commands(6). Verbal Response: rv oriented(5). Total: 15. ED Course: 17:28 Patient arrived in ED. ts1 17:30 [facility] 17:30 Eduard Jack MD is Attending Physician. [facility] 17:43 Yanet Lee, RN is Primary Nurse. db 17:45 Triage completed. db 17:45 Arm band placed on Patient placed in an exam room. db 18:15 Missed attempt(s): 22 gauge in left antecubital area. BY OTHER STAFF MEMBER. Bleeding db controlled, band aid applied, catheter tip intact. 18:30 Inserted saline lock: 20 gauge in right antecubital area, using aseptic technique. db Blood collected. 18:32 1St Trimester Twins In Process Unspecified. EDMS 18:37 Patient has correct armband on for positive identification. Bed in low position. Call db light in reach. Side rails up X 1. Client placed on continuous cardiac and pulse oximetry monitoring. NIBP monitoring applied. Warm blanket given. 19:33 No provider procedures requiring assistance completed. IV discontinued, intact, rv bleeding controlled, No redness/swelling at site. Pressure dressing applied. Administered Medications: No medications were administered Medication: 17:47 VIS not applicable for this client. db Outcome: 19:24 Discharge ordered by . [facility] 19:33 Discharged to home ambulatory, with family, rv 19:33 Condition: good 19:33 Discharge instructions given to patient, Instructed on discharge instructions, follow up and referral plans. Demonstrated understanding of instructions, follow-up care, 19:33 Patient left the ED. rv Signatures: Dispatcher [employer] EDOH Armando Moreno, RN RN Nedra Olguin FNP [place] [id number] Yanet Lee, RN RN Dariela Coyne, MARINA PAS ts1 Corrections: (The following items were deleted from the chart) 19:06 18:00 BP 108 / 49; Pulse 89bpm; Resp 16bpm; Pulse Ox 100% RA; db db
--- NOTE | 2022-12-27 19:24 | EDPHYS ---
Physician Documentation [facility] Name: Angelina Woodard Age: 27 yrs Sex: Female : 1995 Arrival Date: 12/27/2022 Time: 17:25 Bed 18 Private MD: ED Physician Eduard Jack HPI: 12/27 17:45 This 27 yrs old Female presents to ER via Ambulatory with complaints of Abdominal jh7 Cramping, Vaginal Bleeding, 10weeks preg (twins). 17:45 The patient presents to the emergency department with vaginal bleeding, that is light. jh7 The estimated gestational age is 10 weeks. 17:45 course: care: private OB physician. Previous pregnancies: in [facility] previous pregnancies patient has had. Associated signs and symptoms: Pertinent positives: vaginal bleeding, Pertinent negatives: abdominal pain, chest pain, diarrhea, dysuria, fever. Patient with twins. JUAN DANIEL 07/13/2023. She has a history of anemia.. 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 - Social history:: Smoking status: Patient denies any tobacco usage or history of. ROS: 17:45 Constitutional: Negative for fever, chills, and weight loss, Eyes: Negative for injury, jh7 pain, redness, and discharge, Neck: Negative for injury, pain, and swelling, Cardiovascular: Negative for chest pain, palpitations, and edema, Respiratory: Negative for shortness of breath, cough, wheezing, and pleuritic chest pain, Back: Negative for injury and pain, MS/Extremity: Negative for injury and deformity, Skin: Negative for injury, rash, and discoloration, Neuro: Negative for headache, weakness, numbness, tingling, and seizure, 17:45 : Positive for vaginal bleeding, Negative for urinary symptoms, 17:45 All other systems are negative, Exam: 17:45 Constitutional: This is a well developed, well nourished patient who is awake, alert, jh7 and in no acute distress. Head/Face: Normocephalic, atraumatic. Neck: Trachea midline, no thyromegaly or masses palpated, and no cervical lymphadenopathy. Supple, full range of motion without nuchal rigidity, or vertebral point tenderness. No Meningismus. Cardiovascular: Regular rate and rhythm with a normal S1 and S2. No gallops, murmurs, or rubs. Normal PMI, no JVD. No pulse deficits. Respiratory: Lungs have equal breath sounds bilaterally, clear to auscultation and percussion. No rales, rhonchi or wheezes noted. No increased work of breathing, no retractions or nasal flaring. Abdomen/GI: Soft, non-tender, with normal bowel sounds. No distension or tympany. No guarding or rebound. No evidence of tenderness throughout. Back: No spinal tenderness. No costovertebral tenderness. Full range of motion. Skin: Warm, dry with normal turgor. Normal color with no rashes, no lesions, and no evidence of cellulitis. MS/ Extremity: Pulses equal, no cyanosis. Neurovascular intact. Full, normal range of motion. Neuro: Awake and alert, GCS 15, oriented to person, place, time, and situation. Motor strength 5/5 in all extremities. Sensory grossly intact. Normal gait. Vital Signs: 17:35 BP 134 / 103; Pulse 116; Resp 18; Temp 98.2(O); Pulse Ox 100% on R/A; Weight 122.47 kg; db Height 5 ft. 4 in. ; 18:30 BP 121 / 73; Pulse 103; Resp 18; Pulse Ox 99% on R/A; db 18:35 BP 119 / 46; Pulse 104; Resp 18; Pulse Ox 96% on R/A; db 17:35 Body Mass Index 46.34 (122.47 kg, 162.56 cm) db [place] Coma Score: 19:33 Eye Response: spontaneous(4). Motor Response: obeys commands(6). Verbal Response: rv oriented(5). Total: 15. MDM: 17:30 Patient medically screened. [facility] 19:25 Differential diagnosis: threatened Ab, retained Ab, Subchorionic hemorrhage, UTI. Data [facility] reviewed: vital signs, nurses notes, lab test result(s), radiologic studies, ultrasound. Counseling: I had a detailed discussion with the patient and/or guardian regarding the historical points, exam findings, and any diagnostic results supporting the discharge/admit diagnosis, the need for outpatient follow up, an OB/Gyne specialist, to return to the emergency department if symptoms worsen or persist or if there are any questions or concerns that arise at home. Special discussion: Patient concerned due to radiology report stating single intrauterine . The patient stated that she noticed that the parts identification technician performed the ultrasound over her abdomen and that her OB has always done it transvaginally. Advise follow-up with RELIGION TEACHER for repeat ultrasound to confirm number of fetuses.. 12/27 17:33 Order name: Abo/rh Typing; Complete Time: 19:13 [facility] 12/27 17:33 Order name: Basic Metabolic Panel; Complete Time: 19:23 [facility] 12/27 17:33 Order name: CBC with Diff; Complete Time: 19:06 [facility] 12/27 17:33 Order name: Test, Urine; Complete Time: 18:35 [facility] 12/27 17:33 Order name: Quantitative Hcg; Complete Time: 19:23 [facility] 12/27 17:33 Order name: Urinalysis w/ reflexes; Complete Time: 18:35 [facility] 12/27 18:32 Order name: 1St Trimester Twins [facility] 12/27 17:33 Order name: IV Saline Lock; Complete Time: 18:35 [facility] 12/27 17:33 Order name: Labs collected and sent; Complete Time: 18:35 [facility] 12/27 17:33 Order name: NPO; Complete Time: 18:35 [facility] Administered Medications: No medications were administered Disposition: 12/28 08:08 Co-signature as Attending Physician, Eduard Jack MD I reviewed the patient's care rn provided by the Advanced Practice Provider and agree with the diagnosis and treatment plan. Disposition Summary: 12/27/22 19:24 Discharge Ordered Notes: Location: Home [facility] Problem: new [facility] Symptoms: are unchanged [facility] Condition: Stable [facility] Diagnosis - Subchorionic hemorrhage 7 Followup: [facility] - With: Private Physician - When: 2 - 3 days - Reason: Recheck today's complaints Discharge Instructions: - Discharge Summary Sheet [facility] - Vaginal Bleeding During , First Trimester 7 - Subchorionic Hematoma [facility] Forms: - Medication Reconciliation Form 7 - Thank You Letter 7 - Patient Portal Instructions [facility] - Leadership Thank You Letter [facility] Signatures: Dispatcher [facility] Eduard Finch MD MD rn Hadash, Jennifer, FNP COMPUTER RECYCLING WORKER jh7 Yanet Lee, RN RN db Corrections: (The following items were deleted from the chart) 12/27 18:32 17:34 Transvaginal Ob+US.RAD.ASAFZ ordered. EDMS EDMS
[2022-12-27 20:21] VITALS: TEMP 98.2
[2022-12-27 20:26] VITALS: BP 119/46; O2SAT 96
== END 2022-12-27 19:33 | disposition home or self-care (01) ==
LOC: ER 17:25
DX: O46.91 Antepartum hemorrhage, unspecified, first trimester (principal); Z3A.10 10 weeks gestation of pregnancy; Z88.1 Allergy status to other antibiotic agents
CPT/HCPCS: 36415; 76801; 76802; 80048; 81001; 81025; 84702; 85025; 86900; 86901; 99284